=== PATIENT | female | born 1950 | race Caucasian/White ===

== ENCOUNTER 2019-06-01 12:13 | Outpatient (CLI) | payer MEDICARE, BC, SELFPAY ==
--- NOTE | ~2019-06-01 | MM_ITS ---
EXAMINATION: MM diagnostic zafar RT w etelvina HISTORY: Right breast cancer TECHNIQUE: Additional 3-D tomosynthesis images of the right breast were performed and synthetic 2-D i mages were generated. CAD analysis was submitted and interpreted. COMPARISON: Comparison to multiple prior studies sequentially, with oldest reviewed study dated 10/2017. FINDINGS: Breast composed of scattered areas of fibroglandular density. Stable appearance to postsurg ical change upper outer quadrant of the right breast. No new masses, calcifications or architectural distortion. IMPRESSION: 1. Stable right mammogram without evidence for malignancy. 2. Routine yearly screening mammogram and regular clinical breast examination are recommended. BI-RADS Category 2: Benign finding(s). Reviewed, dictated and finalized at location A. SURE CONTROLLER IMPRESSION: 1. Stable right mammogram without evidence for malignancy. 2. Routine yearly screening mammogram and regular clinical breast examination a re recommended. BI-RADS Category 2: Benign finding(s).
== END 2019-06-01 12:14 | disposition home or self-care (01) ==
PROVIDERS: PCP Pediatrics; Visit Provider Internal Medicine Hematology & Oncology
DX: D05.11 Intraductal carcinoma in situ of right breast (principal)
CPT/HCPCS: 77061; 77065; G0279

== ENCOUNTER 2019-06-01 12:49 | Outpatient (CLI) | payer MEDICARE, BC, SELFPAY ==
[2019-06-01 13:03] LABS: Basophils Percent Auto 0.5 % (0.2-1.2); Eosinophils Absolute Auto 0.1 K/mm3 (0-0.3); Eosinophils Percent Auto 1.7 % (0-4.4); Hematocrit 35.5 % (37.0-47.0); Hemoglobin 11.7 g/dL (12.0-15.0); Immature Granulocyte Absolute 0.01 K/mm3 (0.00-0.031); Immature Granulocyte Percent A 0.2 % (0-0.5); Lymphocytes Absolute Auto 1.31 K/mm3 (0.9-3.2); Lymphocytes Percent Auto 21.9 % (18.3-44.2); Mean Corpuscular Hemoglobin 30.1 pg (26-34); Mean Corpuscular Volume 91.3 fl (80-100); Mean Platelet Volume 10.2 fl (7.4-10.4); Monocytes Absolute Auto 0.4 K/mm3 (0.1-0.6); Monocytes Percent Auto 7.2 % (2.6-8.5); Neutrophils Absolute Auto 4.1 K/mm3 (1.3-6.7); Neutrophils Percent Auto 68.5 % (45.5-73.1); Platelet Count Result 165 k/mm3 (150-375); Red Blood Count 3.89 M/mm3 (4.2-5.4); Red Cell Distribution Width 12.9 % (11.5-14.5)
[2019-06-01 13:34] LABS: Blood Urea Nitrogen 18 mg/dL (7-17); Calcium 8.8 mg/dL (8.4-10.2); Carbon Dioxide 28 mmol/L (22-30); Chloride 101 mmol/L (98-107); Estimated Glomerular Filt Rate 55; Glucose 103 mg/dL (65-105); Potassium 4.1 mmol/L (3.4-5.0); Sodium 140 mmol/L (137-145)
== END 2019-06-01 12:50 | disposition home or self-care (01) ==
LOC: ANHLAB 12:53
PROVIDERS: PCP Pediatrics; Visit Provider Internal Medicine Hematology & Oncology
DX: D05.11 Intraductal carcinoma in situ of right breast (principal)
CPT/HCPCS: 36415; 77061; 77065; 80048; 85025; G0279

== ENCOUNTER 2019-09-17 08:54 | Outpatient (CLI) | payer MEDICARE, BC, SELFPAY ==
--- NOTE | ~2019-09-17 | MM_ITS ---
EXAMINATION: MM screening zafar BI w etelvina HISTORY: Screening mammogram, history of right breast cancer TECHNIQUE: Craniocaudal and mediolateral oblique 3-D tomosynthesis images were obtained and synthetic 2-D images were generated. CAD analysis was submitted and interpreted. COMPARISON: 06/01/2019, 09/14/2018, 03/10/2018 BREAST PARENCHYMAL COMPOSITION: The breasts are almost entirely fatty. FINDINGS: Stable lumpectomy changes are noted in the upper outer quadrant of the right breast. There is no evidence of suspicious mass, calcification, or architectural distortion to suggest malignancy i n either breast. There has been no suspicious interval change. IMPRESSION: 1. No mammographic evidence of malignancy. 2. Recommend routine screening mammography in one year. BI-RADS Category 2: Benign finding(s). Reviewed, dictated and finalized at location A.
== END 2019-09-17 08:55 | disposition home or self-care (01) ==
PROVIDERS: PCP Pediatrics; Visit Provider Internal Medicine Hematology & Oncology
DX: Z12.31 Encounter for screening mammogram for malignant neoplasm of breast (principal)
CPT/HCPCS: 77063; 77067

== ENCOUNTER 2019-12-20 10:03 | Outpatient (CLI) | payer MEDICARE, BC, SELFPAY ==
[2019-12-20 10:33] LABS: Basophils Percent Auto 0.5 % (0.2-1.2); Eosinophils Absolute Auto 0.2 K/mm3 (0-0.3); Eosinophils Percent Auto 3.1 % (0-4.4); Hemoglobin 12.1 g/dL (12.0-15.0); Immature Granulocyte Absolute 0.02 K/mm3 (0.00-0.031); Immature Granulocyte Percent A 0.3 % (0-0.5); Lymphocytes Absolute Auto 1.32 K/mm3 (0.9-3.2); Lymphocytes Percent Auto 20.3 % (18.3-44.2); Mean Corpuscular HGB Conc 32.7 g/dl (32-36); Mean Corpuscular Hemoglobin 29.9 pg (26-34); Mean Corpuscular Volume 91.4 fl (80-100); Mean Platelet Volume 10.4 fl (7.4-10.4); Monocytes Absolute Auto 0.6 K/mm3 (0.1-0.6); Monocytes Percent Auto 9.6 % (2.6-8.5); Neutrophils Absolute Auto 4.3 K/mm3 (1.3-6.7); Neutrophils Percent Auto 66.2 % (45.5-73.1); Platelet Count Result 164 k/mm3 (150-375); Red Blood Count 4.05 M/mm3 (4.2-5.4); Red Cell Distribution Width 13.2 % (11.5-14.5); White Blood Count 6.5 K/mm3 (4.5-10.0)
[2019-12-20 10:37] LABS: Blood Urea Nitrogen 20 mg/dL (8-26); Carbon Dioxide 27 mmol/L (22-30); Chloride 105 mmol/L (98-109); Estimated Glomerular Filt Rate 55; Glucose 67 mg/dL (70-105); Potassium 3.9 mmol/L (3.5-4.9); Sodium 142 mmol/L (138-146)
[2019-12-20 15:06] LABS: Alanine Aminotransferase 28 U/L (4-35); Alkaline Phosphatase 53 U/L (38-126); Anion Gap 4 mmol/L (8-16); Aspartate Amino Transferase 35 U/L (14-36); Bilirubin,Total 0.3 mg/dL (0.2-1.3); Blood Urea Nitrogen 20 mg/dL (7-17); Calcium 9.1 mg/dL (8.4-10.2); Carbon Dioxide 28 mmol/L (22-30); Chloride 106 mmol/L (98-107); Estimated Glomerular Filt Rate > 60; Glucose 64 mg/dL (65-105); Potassium 4.3 mmol/L (3.4-5.0); Sodium 138 mmol/L (137-145)
== END 2019-12-20 10:04 | disposition home or self-care (01) ==
PROVIDERS: PCP Pediatrics; Visit Provider Internal Medicine Hematology & Oncology
DX: D05.11 Intraductal carcinoma in situ of right breast (principal)
CPT/HCPCS: 36415; 80048; 80053; 85025

== ENCOUNTER 2020-06-18 09:09 | Outpatient (CLI) | payer MEDICARE, BC, SELFPAY ==
[2020-06-18 09:21] LABS: Basophils Absolute Auto 0.1 K/mm3 (0.0-0.1); Basophils Percent Auto 0.7 % (0.2-1.2); Eosinophils Absolute Auto 0.4 K/mm3 (0-0.3); Eosinophils Percent Auto 5.2 % (0-4.4); Hematocrit 37.8 % (37.0-47.0); Hemoglobin 12.8 g/dL (12.0-15.0); Immature Granulocyte Absolute 0.02 K/mm3 (0.00-0.031); Immature Granulocyte Percent A 0.2 % (0-0.5); Lymphocytes Absolute Auto 2.36 K/mm3 (0.9-3.2); Lymphocytes Percent Auto 28.7 % (18.3-44.2); Mean Corpuscular HGB Conc 33.9 g/dl (32-36); Mean Corpuscular Volume 88.7 fl (80-100); Mean Platelet Volume 10.2 fl (7.4-10.4); Monocytes Absolute Auto 0.7 K/mm3 (0.1-0.6); Monocytes Percent Auto 8.9 % (2.6-8.5); Neutrophils Absolute Auto 4.6 K/mm3 (1.3-6.7); Neutrophils Percent Auto 56.3 % (45.5-73.1); Platelet Count Result 201 k/mm3 (150-375); Red Blood Count 4.26 M/mm3 (4.2-5.4); White Blood Count 8.2 K/mm3 (4.5-10.0)
[2020-06-18 09:25] LABS: Blood Urea Nitrogen 21 mg/dL (8-26); Carbon Dioxide 27 mmol/L (22-30); Chloride 101 mmol/L (98-109); Estimated Glomerular Filt Rate 55; Glucose 106 mg/dL (70-105); Potassium 3.8 mmol/L (3.5-4.9); Sodium 137 mmol/L (138-146)
[2020-06-18 18:38] LABS: Alanine Aminotransferase 48 U/L (4-35); Alkaline Phosphatase 57 U/L (38-126); Anion Gap 7 mmol/L (8-16); Aspartate Amino Transferase 45 U/L (14-36); Bilirubin,Total 0.3 mg/dL (0.2-1.3); Blood Urea Nitrogen 22 mg/dL (7-17); Calcium 9.1 mg/dL (8.4-10.2); Carbon Dioxide 27 mmol/L (22-30); Chloride 103 mmol/L (98-107); Estimated Glomerular Filt Rate > 60; Glucose 106 mg/dL (65-105); Potassium 4.2 mmol/L (3.4-5.0); Sodium 137 mmol/L (137-145)
== END 2020-06-18 09:10 | disposition home or self-care (01) ==
LOC: ANHLAB 09:11
PROVIDERS: PCP Pediatrics; Visit Provider Internal Medicine Hematology & Oncology
DX: D05.11 Intraductal carcinoma in situ of right breast (principal)
CPT/HCPCS: 36415; 80048; 80053; 85025

== ENCOUNTER 2020-09-19 08:56 | Outpatient (CLI) | payer MEDICARE, BC, SELFPAY ==
--- NOTE | ~2020-09-19 | MM_ITS ---
EXAMINATION: MM screening zafar BI w etelvina HISTORY: Screening mammogram, history of right breast cancer TECHNIQUE: Craniocaudal and mediolateral oblique 3-D tomosynthesis images were obtained and synthetic 2-D images were generated. CAD analysis was submitted and interpreted. COMPARISON: 09/17/2019, 06/01/2019, 09/14/2018, 03/10/2018 BREAST PARENCHYMAL COMPOSITION: The breasts are almost entirely fatty. FINDINGS: There are stable lumpectomy changes right breast. There is no evidence of suspicious mass, calcification, or architectural distortion to suggest malignancy in either breast. There has been no suspicious interval change. IMPRESSION: 1. No mammographic evidence of malignancy. 2. Recommend routine screening mammography in one year. BI-RADS Category 2: Benign finding(s). Reviewed, dictated and finalized at location A.
== END 2020-09-19 08:57 | disposition home or self-care (01) ==
LOC: ANHIMG 08:58
PROVIDERS: PCP Pediatrics; Visit Provider Internal Medicine Hematology & Oncology
DX: Z12.31 Encounter for screening mammogram for malignant neoplasm of breast (principal)
CPT/HCPCS: 77063; 77067

== ENCOUNTER 2020-12-19 10:12 | Outpatient (CLI) | payer MEDICARE, BC, SELFPAY ==
[2020-12-19 10:28] LABS: Basophils Percent Auto 0.4 % (0.2-1.2); Eosinophils Absolute Auto 0.2 K/mm3 (0-0.3); Eosinophils Percent Auto 2.5 % (0-4.4); Hematocrit 37.7 % (37.0-47.0); Hemoglobin 12.6 g/dL (12.0-15.0); Immature Granulocyte Absolute 0.02 K/mm3 (0.00-0.031); Immature Granulocyte Percent A 0.3 % (0-0.5); Lymphocytes Absolute Auto 1.69 K/mm3 (0.9-3.2); Lymphocytes Percent Auto 24.8 % (18.3-44.2); Mean Corpuscular HGB Conc 33.4 g/dl (32-36); Mean Corpuscular Hemoglobin 29.9 pg (26-34); Mean Corpuscular Volume 89.3 fl (80-100); Mean Platelet Volume 10.4 fl (7.4-10.4); Monocytes Absolute Auto 0.6 K/mm3 (0.1-0.6); Monocytes Percent Auto 8.7 % (2.6-8.5); Neutrophils Absolute Auto 4.3 K/mm3 (1.3-6.7); Neutrophils Percent Auto 63.3 % (45.5-73.1); Platelet Count Result 195 k/mm3 (150-375); Red Blood Count 4.22 M/mm3 (4.2-5.4); Red Cell Distribution Width 13.2 % (11.5-14.5); White Blood Count 6.8 K/mm3 (4.5-10.0)
[2020-12-19 12:40] LABS: Alanine Aminotransferase 31 U/L (4-35); Albumin Level 4.1 g/dL (3.5-5.1); Alkaline Phosphatase 67 U/L (38-126); Anion Gap 8 mmol/L (8-16); Aspartate Amino Transferase 37 U/L (14-36); Bilirubin,Total 0.4 mg/dL (0.2-1.3); Blood Urea Nitrogen 22 mg/dL (7-17); Calcium 9.2 mg/dL (8.4-10.2); Carbon Dioxide 28 mmol/L (22-30); Chloride 102 mmol/L (98-107); Estimated Glomerular Filt Rate 55; Glucose 101 mg/dL (65-110); Potassium 3.9 mmol/L (3.4-5.0); Sodium 138 mmol/L (137-145)
== END 2020-12-19 10:13 | disposition home or self-care (01) ==
LOC: ANHLAB 10:16
PROVIDERS: PCP Pediatrics; Visit Provider Internal Medicine Hematology & Oncology
DX: D05.11 Intraductal carcinoma in situ of right breast (principal)
CPT/HCPCS: 36415; 80053; 85025

== ENCOUNTER 2021-06-16 12:34 | Outpatient (CLI) | payer MEDICARE, BC, SELFPAY ==
[2021-06-16 12:59] LABS: Basophils Percent Auto 0.6 % (0.2-1.2); Eosinophils Absolute Auto 0.1 K/mm3 (0-0.3); Eosinophils Percent Auto 1.6 % (0-4.4); Hematocrit 39.6 % (37.0-47.0); Hemoglobin 12.7 g/dL (12.0-15.0); Immature Granulocyte Absolute 0.02 K/mm3 (0.00-0.031); Immature Granulocyte Percent A 0.3 % (0-0.5); Lymphocytes Absolute Auto 2.02 K/mm3 (0.9-3.2); Lymphocytes Percent Auto 29.6 % (18.3-44.2); Mean Corpuscular HGB Conc 32.1 g/dl (32-36); Mean Corpuscular Hemoglobin 29.9 pg (26-34); Mean Corpuscular Volume 93.2 fl (80-100); Mean Platelet Volume 10.1 fl (7.4-10.4); Monocytes Absolute Auto 0.6 K/mm3 (0.1-0.6); Monocytes Percent Auto 8.1 % (2.6-8.5); Neutrophils Absolute Auto 4.1 K/mm3 (1.3-6.7); Neutrophils Percent Auto 59.8 % (45.5-73.1); Platelet Count Result 182 k/mm3 (150-375); Red Blood Count 4.25 M/mm3 (4.2-5.4); Red Cell Distribution Width 13.8 % (11.5-14.5); White Blood Count 6.8 K/mm3 (4.5-10.0)
[2021-06-16 13:02] LABS: Blood Urea Nitrogen 24 mg/dL (8-26); Carbon Dioxide 27 mmol/L (22-30); Chloride 99 mmol/L (98-109); Estimated Glomerular Filt Rate 54; Glucose 104 mg/dL (70-105); Potassium 3.5 mmol/L (3.5-4.9); Sodium 140 mmol/L (138-146)
[2021-06-16 13:27] LABS: Alanine Aminotransferase 29 U/L (4-35); Albumin Level 4.3 g/dL (3.5-5.1); Alkaline Phosphatase 58 U/L (38-126); Anion Gap 6 mmol/L (8-16); Aspartate Amino Transferase 46 U/L (14-36); Bilirubin,Total 0.3 mg/dL (0.2-1.3); Blood Urea Nitrogen 24 mg/dL (7-17); Calcium 9.1 mg/dL (8.4-10.2); Carbon Dioxide 30 mmol/L (22-30); Chloride 101 mmol/L (98-107); Estimated Glomerular Filt Rate 54; Glucose 104 mg/dL (65-110); Potassium 3.5 mmol/L (3.4-5.0); Sodium 137 mmol/L (137-145)
== END 2021-06-16 12:35 | disposition home or self-care (01) ==
LOC: ANHLAB 12:36
PROVIDERS: PCP Pediatrics; Visit Provider Internal Medicine Hematology & Oncology
DX: D05.11 Intraductal carcinoma in situ of right breast (principal)
CPT/HCPCS: 36415; 80053; 85025

== ENCOUNTER 2021-09-23 09:05 | Outpatient (CLI) | payer MEDICARE, BC, SELFPAY ==
--- NOTE | ~2021-09-23 | MM_ITS ---
EXAMINATION: MM screening zafar BI w etelvina HISTORY: Screening mammogram; history of right partial mastectomy for breast malignancy in 2018 TECHNIQUE: Craniocaudal and mediolateral oblique 3-D tomosynthesis images were obtained and synthetic 2-D images were generated. CAD analysis was submitted and interpreted. COMPARISON: 09/19/2020, 09/17/2019 bilateral screening mammogram examinations 06/01/2019 diagnostic right mammogram 09/14/2018 bilateral screening mammogram BREAST PARENCHYMAL COMPOSITION: There are scattered areas of fibroglandular density. FINDINGS: Stable postoperative change except for interval benign calcification of an area of fat necr osis in the posterior outer mid to upper right breast. There is no evidence of suspicious mass, calci fication, or architectural distortion to suggest malignancy in either breast. There has been no suspi cious interval change. IMPRESSION: 1. No mammographic evidence of malignancy. 2. Recommend routine screening mammography in one year. BI-RADS Category 2: Benign finding(s). Reviewed, dictated and finalized at location A.
== END 2021-09-23 09:06 | disposition home or self-care (01) ==
PROVIDERS: PCP Pediatrics; Visit Provider Internal Medicine Hematology & Oncology
DX: Z12.31 Encounter for screening mammogram for malignant neoplasm of breast (principal)
CPT/HCPCS: 77063; 77067

== ENCOUNTER 2022-03-24 09:37 | Outpatient (CLI) | payer MEDICARE, BC, SELFPAY ==
[2022-03-24 09:59] LABS: Basophils Percent Auto 0.3 % (0.2-1.2); Eosinophils Absolute Auto 0.1 K/mm3 (0-0.3); Eosinophils Percent Auto 2.2 % (0-4.4); Hematocrit 36.3 % (37.0-47.0); Hemoglobin 11.7 g/dL (12.0-15.0); Immature Granulocyte Absolute 0.01 K/mm3 (0.00-0.031); Immature Granulocyte Percent A 0.2 % (0-0.5); Lymphocytes Absolute Auto 1.57 K/mm3 (0.9-3.2); Lymphocytes Percent Auto 24.8 % (18.3-44.2); Mean Corpuscular HGB Conc 32.2 g/dl (32-36); Mean Corpuscular Hemoglobin 29.8 pg (26-34); Mean Corpuscular Volume 92.6 fl (80-100); Mean Platelet Volume 10.5 fl (7.4-10.4); Monocytes Absolute Auto 0.6 K/mm3 (0.1-0.6); Neutrophils Percent Auto 63.5 % (45.5-73.1); Platelet Count Result 228 k/mm3 (150-375); Red Blood Count 3.92 M/mm3 (4.2-5.4); Red Cell Distribution Width 14.1 % (11.5-14.5); White Blood Count 6.3 K/mm3 (4.5-10.0)
[2022-03-24 10:02] LABS: Blood Urea Nitrogen 21 mg/dL (8-26); Carbon Dioxide 27 mmol/L (22-30); Chloride 101 mmol/L (98-109); Estimated Glomerular Filt Rate 54; Glucose 108 mg/dL (70-105); Potassium 3.4 mmol/L (3.5-4.9); Sodium 140 mmol/L (138-146)
[2022-03-24 11:15] LABS: Alanine Aminotransferase 30 U/L (6-35); Albumin Level 4.2 g/dL (3.5-5.1); Alkaline Phosphatase 93 U/L (38-126); Anion Gap 7 mmol/L (8-16); Aspartate Amino Transferase 40 U/L (14-36); Bilirubin,Total 0.4 mg/dL (0.2-1.3); Blood Urea Nitrogen 21 mg/dL (7-17); Calcium 9.2 mg/dL (8.4-10.2); Carbon Dioxide 31 mmol/L (22-30); Chloride 102 mmol/L (98-107); Estimated Glomerular Filt Rate 54; Glucose 106 mg/dL (65-110); Potassium 3.4 mmol/L (3.4-5.0); Sodium 140 mmol/L (137-145)
== END 2022-03-24 09:38 | disposition home or self-care (01) ==
LOC: ANHLAB 09:39
PROVIDERS: PCP Pediatrics; Visit Provider Internal Medicine Hematology & Oncology
DX: D05.11 Intraductal carcinoma in situ of right breast (principal)
CPT/HCPCS: 36415; 80047; 80053; 85025

== ENCOUNTER 2022-09-27 09:26 | Outpatient (CLI) | payer MEDICARE, BC, SELFPAY ==
[2022-09-27 09:45] LABS: Basophils Percent Auto 0.5 % (0.2-1.2); Eosinophils Absolute Auto 0.2 K/mm3 (0-0.3); Eosinophils Percent Auto 2.3 % (0-4.4); Hematocrit 40.4 % (37.0-47.0); Hemoglobin 13.2 g/dL (12.0-15.0); Immature Granulocyte Absolute 0.01 K/mm3 (0.00-0.031); Immature Granulocyte Percent A 0.2 % (0-0.5); Lymphocytes Absolute Auto 1.94 K/mm3 (0.9-3.2); Lymphocytes Percent Auto 29.8 % (18.3-44.2); Mean Corpuscular HGB Conc 32.7 g/dl (32-36); Mean Corpuscular Hemoglobin 29.6 pg (26-34); Mean Corpuscular Volume 90.6 fl (80-100); Mean Platelet Volume 10.6 fl (7.4-10.4); Monocytes Absolute Auto 0.7 K/mm3 (0.1-0.6); Monocytes Percent Auto 10.5 % (2.6-8.5); Neutrophils Absolute Auto 3.7 K/mm3 (1.3-6.7); Neutrophils Percent Auto 56.7 % (45.5-73.1); Platelet Count Result 186 k/mm3 (150-375); Red Blood Count 4.46 M/mm3 (4.2-5.4); Red Cell Distribution Width 12.9 % (11.5-14.5); White Blood Count 6.5 K/mm3 (4.5-10.0)
[2022-09-27 12:02] LABS: Alanine Aminotransferase 34 U/L (6-35); Albumin Level 4.3 g/dL (3.5-5.1); Alkaline Phosphatase 68 U/L (38-126); Anion Gap 5 mmol/L (8-16); Aspartate Amino Transferase 41 U/L (14-36); Bilirubin,Total 0.4 mg/dL (0.2-1.3); Blood Urea Nitrogen 21 mg/dL (7-17); Calcium 9.2 mg/dL (8.4-10.2); Carbon Dioxide 31 mmol/L (22-30); Chloride 101 mmol/L (98-107); Estimated Glomerular Filt Rate 54; Glucose 100 mg/dL (65-110); Potassium 3.6 mmol/L (3.4-5.0); Sodium 137 mmol/L (137-145)
== END 2022-09-27 09:27 | disposition home or self-care (01) ==
LOC: ANHLAB 09:28
PROVIDERS: PCP Pediatrics; Visit Provider Internal Medicine Hematology & Oncology
DX: D05.11 Intraductal carcinoma in situ of right breast (principal)
CPT/HCPCS: 36415; 80053; 85025

== ENCOUNTER 2022-09-27 09:38 | Outpatient (CLI) | payer MEDICARE, BC, SELFPAY ==
--- NOTE | ~2022-09-27 | MM_ITS ---
EXAMINATION: MM screening zafar BI w etelvina HISTORY: Screening mammogram TECHNIQUE: Craniocaudal and mediolateral oblique 3-D tomosynthesis images were obtained and synthetic 2-D images were generated. CAD analysis was submitted and interpreted. COMPARISON: 09/23/2021, 09/19/2020, 09/17/2019 bilateral screening mammogram examinations BREAST PARENCHYMAL COMPOSITION: There are scattered areas of fibroglandular density.. FINDINGS: Stable postsurgical changes from right partial mastectomy are again noted in the mid upper outer right breast. There is no evidence of suspicious mass, calcification, or architectural distorti on to suggest malignancy in either breast. There has been no suspicious interval change. IMPRESSION: 1. Status post right partial mastectomy for breast cancer. No mammographic evidence of malignancy. 2. Recommend routine screening mammography in one year. BI-RADS Category 2: Benign finding(s). Reviewed, dictated and finalized at location A. IMPRESSION: 1. Status post right partial mastectomy for breast cancer. No mammographic evid ence of malignancy. 2. Recommend routine screening mammography in one year. BI-RADS Category 2: Benign finding(s).
== END 2022-09-27 09:39 | disposition home or self-care (01) ==
LOC: ANHIMG 09:40
PROVIDERS: PCP Pediatrics; Visit Provider Internal Medicine Hematology & Oncology
DX: Z12.31 Encounter for screening mammogram for malignant neoplasm of breast (principal)
CPT/HCPCS: 36415; 77063; 77067; 80053; 85025

== ENCOUNTER 2023-04-08 09:24 | Outpatient (CLI) | payer MEDICARE, BC, SELFPAY ==
[2023-04-08 09:35] LABS: Basophils Absolute Auto 0.1 K/mm3 (0.0-0.1); Basophils Percent Auto 0.6 % (0.2-1.2); Eosinophils Absolute Auto 0.2 K/mm3 (0-0.3); Eosinophils Percent Auto 2.8 % (0-4.4); Hematocrit 40.4 % (37.0-47.0); Hemoglobin 13.1 g/dL (12.0-15.0); Immature Granulocyte Absolute 0.02 K/mm3 (0.00-0.031); Immature Granulocyte Percent A 0.3 % (0-0.5); Lymphocytes Absolute Auto 1.97 K/mm3 (0.9-3.2); Lymphocytes Percent Auto 24.8 % (18.3-44.2); Mean Corpuscular HGB Conc 32.4 g/dl (32-36); Mean Corpuscular Hemoglobin 29.6 pg (26-34); Mean Corpuscular Volume 91.2 fl (80-100); Mean Platelet Volume 9.9 fl (7.4-10.4); Monocytes Absolute Auto 0.9 K/mm3 (0.1-0.6); Monocytes Percent Auto 10.7 % (2.6-8.5); Neutrophils Absolute Auto 4.8 K/mm3 (1.3-6.7); Neutrophils Percent Auto 60.8 % (45.5-73.1); Platelet Count Result 209 k/mm3 (150-375); Red Blood Count 4.43 M/mm3 (4.2-5.4); White Blood Count 7.9 K/mm3 (4.5-10.0)
[2023-04-08 09:39] LABS: Blood Urea Nitrogen 25 mg/dL (8-26); Carbon Dioxide 27 mmol/L (22-30); Chloride 101 mmol/L (98-109); Estimated Glomerular Filt Rate 54; Glucose 104 mg/dL (70-105); Sodium 139 mmol/L (138-146)
[2023-04-08 10:30] LABS: Alanine Aminotransferase 44 U/L (6-35); Albumin Level 4.3 g/dL (3.5-5.1); Alkaline Phosphatase 84 U/L (38-126); Anion Gap 9 mmol/L (8-16); Aspartate Amino Transferase 54 U/L (14-36); Bilirubin,Total 0.7 mg/dL (0.2-1.3); Blood Urea Nitrogen 25 mg/dL (7-17); Calcium 9.2 mg/dL (8.4-10.2); Carbon Dioxide 27 mmol/L (22-30); Chloride 101 mmol/L (98-107); Estimated Glomerular Filt Rate > 60; Glucose 104 mg/dL (65-110); Potassium 4.1 mmol/L (3.4-5.0); Sodium 137 mmol/L (137-145)
== END 2023-04-08 09:25 | disposition home or self-care (01) ==
LOC: ANHLAB 09:26
PROVIDERS: PCP Pediatrics; Visit Provider Internal Medicine Hematology & Oncology
DX: D05.11 Intraductal carcinoma in situ of right breast (principal)
CPT/HCPCS: 36415; 80047; 80053; 85025

== ENCOUNTER 2023-09-30 08:41 | Outpatient (CLI) | payer MEDICARE, BC, SELFPAY ==
--- NOTE | ~2023-09-30 | MM_ITS ---
EXAMINATION: MM screening zafar BI w etelvina HISTORY: Screening mammogram, family history of breast cancer in her mother. TECHNIQUE: Craniocaudal and mediolateral oblique 3-D tomosynthesis images were obtained and synthetic 2-D images were generated. CAD analysis was submitted and interpreted. COMPARISON: 09/27/2022, 09/23/2021, 09/19/2020 BREAST PARENCHYMAL COMPOSITION:Not Dense. There are scattered areas of fibroglandular density. FINDINGS: Stable postoperative change and dystrophic calcification at the upper, outer right breast. No suspicious mass, calcification, or architectural distortion are identified in either breast to sug gest malignancy. There has been no suspicious interval change. IMPRESSION: No mammographic evidence of malignancy. Recommend routine screening mammography in one year. BI-RADS Category 2: Benign finding(s). Reviewed, dictated and finalized at [facility].
== END 2023-09-30 08:42 | disposition home or self-care (01) ==
LOC: ANHIMG 08:44
PROVIDERS: PCP Pediatrics; Visit Provider Internal Medicine Hematology & Oncology
DX: Z12.31 Encounter for screening mammogram for malignant neoplasm of breast (principal)
CPT/HCPCS: 77063; 77067

== ENCOUNTER 2024-06-25 11:00 | Outpatient (CLI) | payer MEDICARE, BC, SELFPAY ==
[2024-06-25 11:17] LABS: Basophils Percent Auto 0.6 % (0.2-1.2); Eosinophils Absolute Auto 0.1 K/mm3 (0-0.3); Eosinophils Percent Auto 1.6 % (0-4.4); Hematocrit 40.7 % (37.0-47.0); Hemoglobin 13.2 g/dL (12.0-15.0); Immature Granulocyte Absolute 0.01 K/mm3 (0.00-0.031); Immature Granulocyte Percent A 0.1 % (0-0.5); Lymphocytes Absolute Auto 2.06 K/mm3 (0.9-3.2); Lymphocytes Percent Auto 29.1 % (18.3-44.2); Mean Corpuscular HGB Conc 32.4 g/dl (32-36); Mean Corpuscular Hemoglobin 29.5 pg (26-34); Mean Corpuscular Volume 91.1 fl (80-100); Mean Platelet Volume 10.3 fl (7.4-10.4); Monocytes Absolute Auto 0.6 K/mm3 (0.1-0.6); Monocytes Percent Auto 8.3 % (2.6-8.5); Neutrophils Absolute Auto 4.3 K/mm3 (1.3-6.7); Neutrophils Percent Auto 60.3 % (45.5-73.1); Platelet Count Result 192 k/mm3 (150-375); Red Blood Count 4.47 M/mm3 (4.2-5.4); Red Cell Distribution Width 13.2 % (11.5-14.5); White Blood Count 7.1 K/mm3 (4.5-10.0)
[2024-06-25 11:48] LABS: Anion Gap 10 mmol/L (4-12); Blood Urea Nitrogen 18 mg/dL (7-17); Calcium 9.8 mg/dL (8.4-10.2); Carbon Dioxide 27 mmol/L (22-30); Chloride 104 mmol/L (98-107); Estimated Glomerular Filt Rate 59; Glucose 106 mg/dL (65-110); Potassium 4.5 mmol/L (3.4-5.0); Sodium 141 mmol/L (137-145)
--- OUTSIDE RECORDS SUMMARY | 2024-06-25 13:02 | XMS_ITS | Clinical Summary ---
Author Organization [facility] Address [address] [place] [address] Care Team Providers Care Rn Concurrent Review Name Role Phone Rick Mohan MD Primary Care Provider + [phone] David Greene MD Unavailable Unavailabl Ever Kennedy MD Unavailable [phone] Allergies Active Allergy Reactions Criticality Noted Date Comments Tape Unknown 01/23/2020 Nickel Hives 07/29/2017 Medications Calcium Carb-Cholecalci ferol (CALCIUM CARBONATE-VITAM IN D) 600-400 MG-UNIT tablet Take 2 tablets by mouth daily. Active Glucosamine-Cho ndroit-Vit C-Mn (GLUCOSAMINE 1500 COMPLEX OR) Take 1 capsule by mouth daily. Active tamoxifen 20 MG tablet Take 1 tablet by mouth daily. 12/12/2019 Active valACYclovir 1 g tablet Take 1 tablet (1,000 mg total) by mouth daily. Takes on Mon,wed,Fri in evening 08/06/2019 Active Multiple Vitamins-Minera ls (CENTRUM SILVER 50+WOMEN) Tab Take 1 tablet by mouth daily. Active Magnesium Gluconate 500 MG Tab Take 1 tablet by mouth daily. Active vitamin D3, cholecalciferol , 5000 UNITS capsule Take 2,000 Units by mouth daily. Active chlorthalidone 25 MG tablet Take 1 tablet (25 mg total) by mouth daily. 03/21/2020 Active atorvastatin (LIPITOR) 40 MG tablet 09/12/2022 Active Active Problems Problem Noted Date Diagnosed Date Personal history of colonic polyps 09/06/2022 Overview (09/06/2022): Added automatically from request for surgery [id number] PVC (premature ventricular contraction) 01/23/20 PAC (premature atrial contraction) 01/22/2022 PFO (patent foramen ovale) ([facility]) 07/22/2021 Essential (primary) hypertension 07/22/2021 Abnormal EKG 05/26/2020 Mixed hyperlipidemia 01/28/2020 Prehypertension 01/28/2020 Resolved Problems Problem Noted Date Diagnosed Date Resolved Date Preop cardiovascular exam 01/28/2020 Immunizations Name Administration Dates Next Due Influenza (Generic) 01/23/2013,01/13/2012 PFIZER COVID-19 (ORIGINAL FO RMULATION, PURPLE CAP) mRNA, LNP-S, PF, 30 MCG/0.3 ML DOSE 06/12/2020,05/22/2020 Pneumococcal (Prevnar 13) 09/06/2015 Shingrix 09/15/2019,04/26/2019 Zoster (Zostavax) 15609 Unt/0.65Ml 07/09/2015 Family History Medical History Relation Comments Lung Cancer Brother Cancer Father Diabetes Father Heart Disease Mother Hyperlipidemia Mother Hypertension Mother Stroke Mother Relation Status Comments Brother Father Mother Social History Tobacco Use Types Packs/Day Years Used Date Smoking Tobacco: Former Smokeless Tobacco: Never Alcohol Use Standard Drinks/Week Comments Yes 0 (1 standard drink = 0.6 oz pur e alcohol) socially Comments No Sex and Gender Information Value Date Recorded Sex Assigned at Not on file Legal Sex Female 6:15 PM CDT Gender Identity Not on file Sexual Orientation Not on file Last Filed Vital Signs Vital Sign Reading Time Taken Comments Blood Pressure 138/69 09/14/2022 11:36 AM CDT Pulse 65 09/14/2022 11:36 AM CDT Temperature 36.8 C (98.3 F) 09/14/2022 9:37 AM CDT Respiratory Rate 16 09/14/2022 11:36 AM CDT Oxygen Saturation 99% 09/14/2022 11:36 AM CDT Inhaled Oxygen Concentration - - Weight 66.7 kg (147 lb 0.8 oz) 09/14/2022 9:37 A M CDT Height 157.5 cm (5' 2 ) 09/14/2022 9:37 AM CDT Body Mass Index 26.9 09/14/2022 9:37 AM CDT Plan of Treatment Health Maintenance Due Date Last Done Comments PHQ-2 (Physician Native) 1962 Hepatitis C 1968 DTaP, Tdap and Td Vaccines ( 1 - Tdap) 1969 Annual Medicare Wellness Visit 2013 Pneumococcal Vaccine: 65+ Years (2 of 2 - PPSV23 or PCV20) 09/05/2016 09/06/2015 RSV Immunization or 60+ Years (1 - 1-dose 75+ series) 2023 COVID-19 Vaccine (3 - 2023-2 5 season) 2023 06/12/2020, 05/22/2020 Influenza Adult (#1) 2024 01/23/2013, 01/13/2012 PHQ-2 (Physician Native) 04/04/2024 Zoster Vaccines Completed 09/15/2019, 04/26/2019, 07/09/2015 Colorectal Cancer Screening Colonoscopy (10 Years) Discontinued 09/14/2022, 09/14/2022 Dexa Scan (General) Completed 01/28/2023 Meningococcal B Vaccine Aged Out No l onger eligible based on patient's age to complete this topic Meningococcal Vaccine Aged Out No omar james eligible based on patient's age to complete this topic RSV Immunizations Under 20 Months Aged Out No longer eligible based on patient's age to complete this topic Procedures Procedure Name Priority Date/Time Associated Diagnosis Comments BONE DENSITY/DEXA Routine 01/28/2023 9:5 0 AM CDT Asymptomatic menopausal state COLONOSCOPY Routine 09/14/2022 9:10 AM CDT from Last 3 Months or Most Recently Relevant to Health Maintenance Results * BONE DENSITY/DEXA (01/28/2023 9:50 AM CDT) Anatomical Region Laterality Modality Bone Other, Computed Tomography 02/01/2023 9:22 AM CDT Impressions 02/01/2023 9:24 AM CDT IMPRESSION: WHO Classification: osteopenia. 5.2% interval increase in bone mineral density of the left hip from 2019 comparison. Ordered By: MEGHNA YATES Interpreted By: Ronald Correa MD, 02/01/2023 9:22 AM Narrative 02/01/2023 9:24 AM CDT Examination: Bone Density Axial Exam Date/Time: 01/28/2023 9:38 AM Reason For Exam: Asymptomatic menopausal state Comparison: 07/26/2018 DEXA scan Findings: DEXA bone densitometry The bone mineral density (BMD) was determined by dual-energy x-ray absorptiometry, the results are as follows: AP Lumbar Spine L1 through L4 BMD Patient (GM/SQCM): 1.317 T-Score (Standard deviations from young adult peak bone density): 1.1 Left femoral neck: BMD Patient (GM/SQCM): 0.676 T-Score (Standard deviations from young adult peak bone density): -2.5 Total left femur: BMD Patient (GM/SQCM): 0.840 T-Score (Standard deviations from young adult peak bone density): -1.3 Procedure Note Ronald Correa MD - 02/01/2023 Examination: Bone Density Axial Exam Date/Time: 01/28/2023 9:38 AM Reason For Exam: Asymptomatic menopausal state Comparison: 07/26/2018 DEXA scan Findings: DEXA bone densitometry The bone mineral density (BMD) was determined bydual-energy x-ray absorptiometry, the results are as follows: AP Lumbar Spine L1 through L4 BMD Patient (GM/SQCM): 1.317 T-Score (Standard deviations from young adult peak bonedensity): 1.1 Left femoral neck: BMD Patient (GM/SQCM): 0.676 T-Score (Standard deviations from young adult peak bonedensity): -2.5 Total left femur: BMD Patient (GM/SQCM): 0.840 T-Score (Standard deviations from young adult peak bonedensity): -1.3 IMPRESSION: WHO Classification: osteopenia. 5.2% interval increase in bone mineraldensity of the left hip from 2019 comparison. Ordered By: MEGHNA YATES Interpreted By: Ronald Correa MD, 02/01/2023 9:22 AM Meghna Yates [facility]- DEXA Final R esult from Last 3 Months or Most Recently Relevant to Health Maintenance Insurance [facility]IC[facility] Advance Directives Documents on File Type Date Recorded Patient Lease Operator Expl anation Advance Directives and Living Will 11/18/2014 12:00 AM ADVANCED DIRECTIVES Advance Directives and Living Will 11/18/2014 12:00 AM ADVANCED DIRECTIVES Care Teams Rn Concurrent Review Relationship Specialty Start Date End Date Rick Mohan MD [address] [place], [place] [id number] PCP - General PEDIATRICS 01/23/20 David Greene MD [address] [place] [address] OBGYN 01/23/20 Ever Bernstein MD [address] [address] Physician INTERVENTIONAL CARDIOLOGY 01/23/20
--- OUTSIDE RECORDS SUMMARY | 2024-06-25 13:02 | XMS_ITS | Data Portability ---
Author Organization [place] [facility] Main Office- [place] Address [address] [place] [address] Care Team Providers Care Jewel Grinder Name Role Phone JL GONZALEZ Primary Care Provider [phone] Assessment No assessment recorded. Plan of Treatment Reminders Order Date Submit Date Provider Last Modified By Organization Details Last Modified Time Details Appointments None record ed. Lab None record ed. Referral None record ed. Procedures None record ed. Surgeries None record ed. Imaging None record ed. Medication Orders None record ed. Patient TargetsNo targets recorded. Patient Instructions Encounter Date Encounter Id Patient Instructions Last Modified By Organization Details Last Modified Time 12/09/2020 [id number] I discussed with Rosita that fortunately this fracture is not in a position where it needs surgical intervention. My recommendation is for her to wear the walking boot for support. She will need this on anytime she is up and ambulatory. She can weight bear as tolerated. If this causes her too much pain she can use the knee walker when needed. She can continue to ice and elevate to help with the swelling. She will use Tylenol for pain control. I will see her back in six weeks with repeat radiographs. [email or web address] Not available 12/12/2020 17:33:06 01/20/2021 779 I discussed with Rosita that she can now wean out of the boot, using pain as a guide. She can work on ROM exercises. If this swells with increased activities she can ice and elevate as needed. I will see her back on a PRN basis. [email or web address] Not available 01/20/2021 21:33:31 02/24/2021 909 I discussed with Rosita that at this point she can return to all activities as normal. If while she is extra active while on vacation the foot may swell some. She can just ice and elevate as needed. Her radiographs show good healing and union of this fracture. I am going to release her to a PRN basis. She is in agreement with this. Patient was seen by Bethanie Farfan NP, and the diagnoses, problems and treatment plan for the patient has been reviewed and approved by ne, Dr. Patricio Jimenez. Not available 02/24/2021 11:06:11 Reason for Referral None Reported. Results Created Date Observation Date Name Description Value Unit Range Abnormal Flag Note LastModifiedBy Organization Detail LastModifiedTime 01/15/20 XR, foot No observ ation record ed. [address], [place], [address], 01/14/2021 17:11:33 01/21/2001/20/2021 imagi ng inter preta tion No observ ation record ed. [place] [address], [place], [address], 01/21/2021 11:47:53 02/17/20 XR, foot No observ ation record ed. [address], [place], [address], 02/16/2021 14:31:43 02/25/20 21 02/24/2021 imagi ng inter preta tion No observ ation record ed. [place] [address], [place], [address], 02/25/2021 10:15:10 Result Notes None recorded. Problems Name Problem SNOMED Code Status Onset Date Resolution Date Notes Provider Name and Address Organization Details Recorded Time Closed fracture of base of fifth metatarsal bone 196297132 Completed 202002/16/2021 [place] [address], [place], [address], [place] [facility] 14:32:51 Closed fracture of base of fifth metatarsal bone 199571522 Completed 202002/16/2021 Nickie Aceves null, [place] [facility] 11:03:57 Closed fracture of base of fifth metatarsal bone 012594811 Completed 202002/16/2021 Nickie Ketan [place] [facility] 11:03:57 Closed fracture of base of fifth metatarsal bone 264980797 Active 2020 Nickie Ketan [place] [facility] 11:03:57 Hypertensiv e disorder 20418378 Active 2020 Nickie Aceves [place] [facility] 09:17:37 Hypercholes terolemia 99441029 Active 2020 Nick[place]ves [place] [facility] 09:17:44 Malignant tumor of breast 771419653 Active 2020 Nickie Ketan [place] [facility] 09:17:54 Problem Notes None recorded. Procedures Surgical History Date Name Laterality Status Provider Name and Address Organization Details Recorded Time lumpectomy of right breast completed Nickie Ketan [place] [facility] 12/05/2020 09:22:00 open reduction of fracture with internal fixation completed Nickie Aceves [place] [facility] 12/05/2020 09:23:09 fixed suspension procedure of urinary bladder neck completed Nickie Ketan [place] [facility] 12/05/2020 09:23:37 Imaging Results Imaging Date Name Status LastModified by Organization Details LastModified Time 01/14/2021 XR, foot completed [address], [place], [address], 01/14/2021 17:11:33 01/20/2021 imaging interpretation completed [address], [place], [address], 01/21/2021 11:47:53 02/16/2021 XR, foot completed [address], [place], [address], 02/16/2021 14:31:43 02/24/2021 imaging interpretation completed [address], [place], [address], 02/25/2021 10:15:10 Procedure Notes None recorded. Medical Equipment None Reported. Allergies Allergen ID Allergen Name Allergen Category Reaction Reaction Severity Criticality Documentation Date Start Date Code Code System Note Provider Name and Address Organization Details Recorded Time 302 nickel environme nt rash severe Not available 12/05/2020 97956 29 RxNorm Nickie haney, [place] [facility] 09:17:06 Medications Name Sig Start Date Stop Date Status Note LastModified by Organization Details LastModified Time atorvastati n 20 mg tablet TAKE 1 TABLET BY MOUTH EVERY NIGHT AT BEDTIME active Not Available Not Available No t Available atorvastati n 10 mg tablet TK 1 T PO QD 12/09 completed Not Available Not Available Not Available fluconazole 150 mg tablet TAKE 1 TABLET BY MOUTH ON DAY 3 OF ANTIBIOTI C active Not Available Not Available No t Available valacyclovi r 1 gram tablet TAKE 1 TABLET BY MOUTH DAILY active Not Available Not Available No t Available chlorthalid one 25 mg tablet TAKE 1 TABLET BY MOUTH EVERY DAY active Not Available Not Available No t Available tramadol 50 mg tablet TAKE 1 TABLET BY MOUTH EVERY 6 HOURS NEEDED FOR PAIN 12/09 completed Not Available Not Available Not Available cephalexin 500 mg capsule TAKE 1 CAPSULE BY MOUTH THREE TIMES A DAY UNTIL FINISHED 01/20 completed Not Available Not Available Not Available tamoxifen 20 mg tablet TAKE 1 TABLET BY MOUTH DAILY active Not Available Not Available No t Available ipratropium bromide 21 mcg (0.03 %) nasal spray USE 2 SPRAYS IN EACH NOSTRIL 2 TIMES PER DAY active Not Available Not Available No t Available Vitals Date Recorded Body height Body mass index (BMI) Body weight Body temperature Heart rate Systolic blood pressure Diastolic blood pressure Provider Name and Address Organization Details Last Updated DateTime 1 160.02 cm 27.5 kg/m2 60750.8 2 g 97.5 [degF] 70 /min 143 mm[Hg] 59 mm[Hg] Cristy Inman [place] [facility] 15:04:58 Date Recorded Body height Heart rate Systolic blood pressure Diastolic blood pressure Provider Name and Address Organization Details Last Updated DateTime 01/20/2021 160.02 cm 66 /min 136 mm[Hg] 68 mm[Hg] Cristy Ambrizoggins [place] [facility] 01/20/2021 10:58:51 Date Recorded Body height Heart rate Systolic blood pressure Diastolic blood pressure Provider Name and Address Organization Details Last Updated DateTime 02/24/2021 160.02 cm 75 /min 120 mm[Hg] 66 mm[Hg] Cristy Storm [place] [facility] 02/24/2021 10:12:45 Social History Question Answer Notes LastModified by Organizat ion Details LastModified Time Tobacco Smoking Status Former Smoker Nickie haney [place] [facility] 12/05/2020 09:19:45 Do You Have An Advance Directive? Yes Information not available 12/05/2020 What Is Your Level Of Alcohol Consumption? Occasional Information not available 12/05/2020 Are You Blind Or Do You Have Difficulty Seeing? No Information not available 12/05/2020 Is Blood Transfusion Acceptable In An Emergency? Yes Information not available 12/05/2020 What Is Your Level Of Caffeine Consumption? Moderate Information not available 12/05/2020 In The 14 Days Before Symptom Onset, Have You Had Close Contact With A Laboratory-confir med COVID-19 While That Case Was Ill? No Information not available 12/05/2020 In The 14 Days Before Symptom Onset, Have You Had Close Contact With A Person Who Is Under Investigation For COVID-19 While That Person Was Ill? No Information not available 12/05/2020 Have You Been To An Area Known To Be High Risk For COVID-19? No Information not available 12/05/2020 Are You Currently Employed? No Information not available 12/05/2020 Are You Deaf Or Do You Have Serious Difficulty Hearing? No Information not available 12/05/2020 What Type Of Diet Are You Following? REGULAR Information not available 12/05/2020 Have You Processed Blood Or Body Fluids From An Ebola Virus Disease Patient Without Appropriate PPE? No Information not available 12/05/2020 Do You Reside In Or Have You Traveled To An Area Where Ebola Virus Transmission Is Active? No Information not available 12/05/2020 What Is The Highest Grade Or Level Of School You Have Completed Or The Highest Degree You Have Received? [id number] Information not available 12/05/2020 Are There Any Guns Present In Your Home? No Information not available 12/05/2020 Which Of Your Hands Is Dominant? Right Information not available 12/05/2020 What Is Your Relationship Status? Information not available 12/05/2020 Do You Use Your Seat Belt Or Car Seat Routinely? Yes Information not available 12/05/2020 Are You Sexually Active? No Information not available 12/05/2020 Do You Have Smoke And Carbon Monoxide Detectors In Your Home? Yes Information not available 12/05/2020 Do You Feel Stressed (tense, Restless, Nervous, Or Anxious, Or Unable To Sleep At Night)? [id number] Information not available 12/05/2020 Do You Use Any Illicit Or Recreational Drugs? No Information not available 12/05/2020 Do You Use Sunscreen Routinely? No Information not available 12/05/2020 Do You Or Have You Ever Used Any Other Forms Of Tobacco Or Nicotine? No Information not available 12/05/2020 Sex: Female Functional Status Question Answer Note LastModified by Organizat ion Details LastModified Time Do you have difficulty walking or climbing stairs? No Information not available 12/05/2020 Are you able to walk? YESWOREST Information not available 12/05/2020 Do you have difficulty doing errands alone? No Information not available 12/05/2020 Are you able to care for yourself? Yes Information not available 12/05/2020 Do you have difficulty dressing or bathing? No Information not available 12/05/2020 What is your exercise level? Occasional Information not available 12/05/2020 Mental Status Question Answer Note LastModified by Organization D etails LastModified Time Do you have difficulty concentrating, remembering or making decisions? No Information no t available 12/05/2020 Family History Relationship Description Onset Age of this Age Resolved Age Notes LastModified by Organization Details LastModified Time Father No current problems or disability Not available 12/05 09:18:01 Mother No current problems or disability Not available 12/05 09:18:01 Medical History Condition Response Coronary Artery Disease N Heart Problems N Gout N Anxiety/Depression N Blood Transfusion N Hernia N Migraines N Thyroid Problems N COPD N Pacemaker N Anemia N Ulcers N Heart Attack (MD) N Diabetes N Bleeding Disorder N Orthotics N Arthritis N Seizures/Epilepsy N Blood Clot N Tuberculosis N AIDS/HIV N Cancer Y Stroke N Asthma N Peripheral Vascular Disease N High Cholesterol Y Hepatitis N Liver Disease N Rheumatoid Arthritis N Pulmonary Embolism N Hypertension Y Osteoporosis N Kidney Disease N Gynecological HistoryNo gynecological history recorded. Obstetrics History GPAL:G 0 P 0 0 0 0 Past Encounters Encounter ID Performer Location Encounter Start Date Encounter Closed Date Diagnosis/Indication Diagnosis SNOMED-CT Code Diagnosis ICD10 Code Diagnosis Note [id number] Patricio Jimenez [facility] [address] [place] [address] 12/09/2020 14:51:52 12/09/2020 15:53:50 Closed fracture of base of fifth metatarsal bone 924127116 S92.355A [id number] Patricio Jimenez DO [facility] [address] [place] [address] 01/20/2021 10:10:58 01/20/2021 11:35:24 Closed fracture of base of fifth metatarsal bone 214111838 S92.355A [id number] Patricio Jimenez DO [facility] [address] [place] [address] 02/24/2021 09:55:37 02/24/2021 11:06:59 Closed fracture of base of fifth metatarsal bone 776228382 S92.352D Health Concerns Section Related Observation LastModified by Organization Detai ls LastModified Time None Recorded Concern Status LastModified by Organization Details LastModified Time None Recorded Advance Directives Directive Y: Payers Encounter Date Sequence Insurance Name Policy Number Policy Raymundo Covered Member ID Raymundo Member ID Guarantor Name 12/09/2020 1 [place] Rosita Welch [id number] Rosita Welch 01/20/2021 1 [place] Welch [id number] Rosita Welch 01/20/2021 2 [place] [id number] Rosita Welch [id number] Rosita Welch 02/24/2021 1 [place] Welch [id number] Rosita Welch 02/24/2021 2 [place] [id number] Rosita Welch [id number] Rosita Welch Notes Date Note Type Note Provider Name and Address Organization Details Recorded Time 12/09/2020 text/html FootReported bypatient.Location: left; lateral Quality:aching Severity:mild Timing:abrupt Duration:date of onset: (12/04/2020); intermittent episodes lasting: Context:fall Aggravating Factors:walking; weightbearing Alleviating Factors:ice; rest; elevation Associated Symptoms:no numbness; no tingling; no redness;swelling Previous Surgery:none Prior Imaging:x ray Previous Injections:none Previous PT:none Working:no Work Related:no Rosita is here in follow up from the [place] [facility] on 12/04/2020. She states that she had just gotten a massage and was wearing a pair of croc sandles and her foot still had some oil on the bottom from the massage. She went to step off of a curb and the foot slipped out of the sandle causing her to hit her foot and skin her knees. She was placed into a posterior splint at the ER. She does have a boot already as well as a knee walker. She states she is not really having a lot of pain. The ROS is located in the chart and discussed with the patient. Patricio Jimenez, [address] [place], [address], [place] [facility] 12/14/2020 16:46:57 01/20/2021 text/html Rosita is seen in fracture care today for a follow up of her left fifth metatarsal fracture from 12/09/2020. She has recently returned from vacation where she did a lot of walking and wore her walking boot the entire time. She states she has not had any problems or any pain with her foot since she saw us [place] [address], [place], [address], [facility] - [facility] 01/21/2021 11:38:42 02/24/2021 text/html FootReported bypatient.Location: left Severity:no pain Previous Surgery:none Prior Imaging:x ray Rosita returns today in fracture care following her left foot base of the fifth metatarsal fracture on 12/09/2020. At her last visit she did have bridging callus but it was not yet 100% healed. She is a very active person and before going on vacation out of the country in a few weeks she wanted to make sure that the [place] [address], [place], [address], [facility] - [facility] 02/25/2021 10:08:15 OBGyn Episode No OBEpisode recorded.
--- OUTSIDE RECORDS SUMMARY | 2024-06-25 13:02 | XMS_ITS | Encounter Summary ---
Author Organization [facility] Address [address] [place] [address] Care Team Providers Care Unstacker Name Role Phone Rick Mohan MD Primary Care Provider + [phone] David Greene MD Unavailable [facility] Ever Bernstein MD Unavailable [phone] Encounter Details Date Type Department Care Team (Late st Contact Info) Description 01/23/2020 [facility] [address] [place] [address] Abstract, Doc [facility] Social History Tobacco Use Types Packs/Day Years Used Date Smoking Tobacco: Former Smokeless Tobacco: Never Alcohol Use Standard Drinks/Week Comments Yes 0 (1 standard drink = 0.6 oz pur e alcohol) socially Comments Unknown Sex and Gender Information Value Date Recorded Sex Assigned at Not on file Legal Sex Female 6:15 PM CDT Gender Identity Not on file Sexual Orientation Not on file documented as of this encounter Plan of Treatment Not on file documented as of this encounter Visit Diagnoses Not on filedocumented in this encounter Additional Health Concerns Infection Onset Date Last Indicated Resolved Time COVID-19 Rule Out 07/13/2020 07/13/2020 02/23/2021 6:13 PM COMPOSITE LAMINATOR COVID-19 Rule Out 07/18/2020 07/18/2020 02/23/2021 6:16 PM COMPOSITE LAMINATOR COVID-19 Rule Out 07/21/2020 07/21/2020 07/21/2020 12:31 PM CDT COVID-19 Rule Out 07/21/2020 07/18/2020 07/21/2020 12:33 PM CDT COVID-19 Rule Out 10/25/2020 10/25/2020 10/25/2020 8:42 AM CDT COVID-19 Rule Out 10/25/2020 10/25/2020 10/26/2020 8:01 PM CDT COVID-19 Rule Out 04/17/2021 04/17/2021 04/18/2021 3:56 AM COMPOSITE LAMINATOR documented as of this encounter Care Teams Unstacker Relationship Specialty Start Date End Date Rick Mohan MD [address] [place] [address] PCP - General PEDIATRICS 01/23/20 David Greene MD [address] [place] [address] OBGYN 01/23/20 Ever Bernstein MD [address] [facility] [address] [address] Physician INTERVENTIONAL CARDIOLOGY 01/23/20 documented as of this encounter
--- OUTSIDE RECORDS SUMMARY | 2024-06-25 13:02 | XMS_ITS | Clinical Summary ---
Author Organization [facility] Address [address] [place] [address] Phone Care Team Providers Care Drain Tile Press Operator Name Role Phone Brain Mohan MD Primary Care Provider Allergies Active Allergy Reactions Criticality Noted Date Comments Adhesive Tape-Silicones Itching,Unknown Low 018 Nickel Hives High 07/29/2017 Medications valACYclovir (VALTREX) 1 gram tablet TK 1 T PO DAILY 3 07/07/2017 Active glucosamine-cho ndroitin (ARTHX DS) 500-400 mg Capsule Take 1 Capsule by mouth 2 times daily 1/2 DOSE TWICE A DAY. Active docusate sodium (COLACE) 100 mg capsule Take 100 mg by mouth daily at bedtime . Active cholecalciferol , vitamin D3, 5,000 unit Take 1,000 Units by mouth 2 times daily as needed . Active calcium as carbonate (CALTRATE) 1,500 mg (600 mg elemental) Tablet Take 600 mg by mouth 2 times daily. Active MYRBETRIQ 25 mg Extended Release 24 hour tablet TK 1 T PO D QPM 2 10/09/2018 Active chlorthalidone (HYGROTON) 25 mg tablet Take 25 mg by mouth. 03/21/2020 Active magnesium gluconate (MAGONATE) 27 mg (500 mg) Tablet Take 1 Tablet by mouth. Active naproxen sodium (ALEVE) 220 mg Capsule Take by mouth. Active multivitamin with minerals (MULTIPLE VITAMINS 55 PLUS ORAL) Take 1 Tablet by mouth. Centrum Silver 50+ Active glucosamine-cho ndroitin (COSAFLEX) 500-400 mg Capsule Take by mouth. Active tamoxifen (NOLVADEX) 20 mg tabletIndicatio ns:Ductal carcinoma in situ (DCIS) of right breast TAKE 1 TABLET BY MOUTH DAILY 90 Tablet 3 10/08/2020 Active atorvastatin (LIPITOR) 20 mg tablet TAKE 1 TABLET BY MOUTH EVERY NIGHT AT BEDTIME 11/17/2020 Active Active Problems Problem Noted Date Diagnosed Date Osteopenia 12/21/2019 DCIS (ductal carcinoma in situ) of breast 2017 Encounters Date Type Department Care Team Description 06/25/2024 Orders Only [facility] - [place] [address] [place] [address] Roe Borden MD Ductal carcinoma in situ (DCIS) of right breast (Primary Dx) 05/01/2024 External Device Data STL ABSTRACTION Provider, Abstract from Last 3 Months Family History Medical History Relation Name Comments Lung Cancer Brother Pancreatic Cancer Father Breast Cancer Maternal Grandmother Breast Cancer Mother x 3 times Healthy Sister Relation Name Status Comments Brother Father Maternal Grandfather Maternal Grandmother Mother Alive Paternal Grandfather Paternal Grandmother Sister Alive Social History Tobacco Use Types Packs/Day Years Used Date Smoking Tobacco: Former Cigarettes Q uit: 07/29/2002 Smokeless Tobacco: Never Tobacco Cessation:Counseling Given: Not Answered Alcohol Use Standard Drinks/Week Comments Yes 0 (1 standard drink = 0.6 oz pur e alcohol) SOCIALLY Comments No Sex and Gender Information Value Date Recorded Sex Assigned at Not on file Legal Sex Female 1:04 PM CDT Gender Identity Not on file Sexual Orientation Not on file Last Filed Vital Signs Vital Sign Reading Time Taken Comments Blood Pressure 118/68 2023 9:43 AM SUPERVISOR CLOTH WINDING Pulse 77 2023 9:43 AM SUPERVISOR CLOTH WINDING Temperature 36 C (96.8 F) 2023 9:43 AM SUPERVISOR CLOTH WINDING Respiratory Rate 10 2023 9:43 AM SUPERVISOR CLOTH WINDING Oxygen Saturation 97% 2023 9:43 AM SUPERVISOR CLOTH WINDING Inhaled Oxygen Concentration - - Weight 66.7 kg (147 lb) 2023 9:43 AM SUPERVISOR CLOTH WINDING Height 160 cm (5' 3 ) 10/01/2022 9:26 AM CDT Body Mass Index 26.04 10/01/2022 9:26 AM CDT Plan of Treatment Upcoming Encounters Date Type Department Care Team (Late st Contact Info) Description 06/27/2024 2:00 PM CDT Office Visit [facility] - [place] [address] [facility] [address] [place] [address] Roe Borden MD [address] [facility] [address] [place] [address] Health Maintenance Due Date Last Done Comments DTAP/TDAP/TD VACCINES (1 - Tdap) 1969 Traditional Medicare (ACO) A nnual Wellness Visit 1969 PNEUMOCOCCAL VACCINE 50+ YEA RS (2 of 2 - PPSV23) 09/05/2016 09/06/2015 RSV VACCINE (60+ or ) (1 - 1-dose 75+ series) 2023 INFLUENZA VACCINE (#1) 2023 ZOSTER VACCINE Completed 09/15/2019, 04/05, 07/09/2015 COLORECTAL SCREENING Discontinued 09/14/2022, 09/14/2022, 09/14/2022, Additional history exists Colorectal Cancer Screening Discontinued OSTEOPOROSIS SCREENING Completed , 01/28/2023, 07/26/2018, Additional history exists FIT-DNA Q 3 years Discontinued FIT/FOBT Q 1 year Discontinued Flex Sig/CT Colonography Q 5 years Discontinued Medical Devices Implanted Type Area Manager Freelance Device Identifier Shelf Expiration Date Model / Serial / Lot Cataract Lens Left: Eye Insurance MEDICARE PART A AND B [employer] BLUE ACCESS/TRUE BLUE PPO Member Subscriber Plan / Payer (Ef fective 2020-Present) Name:Rosita Welch Relation to Subscriber:Self Name:Rosita Welch Payer ID:[id number] ([facility]) Type:PPO RX [employer] Commercial [facility] BLUE ACCESS/TRUE BLUE PPO Member Subscriber Plan / Payer (Ef fective 2020-Present) Name:Rosita Welch Relation to Subscriber:Self Name:Rosita Welch Payer ID:[id number] ([facility]) Type:PPO MEDICARE PART A AND B Advance Directives For more information, please contact: [phone] * Full Code (Latest Code Status on File) Date Activated Date Inactivated Comments 08/03/2017 9:40 AM 08/03/2017 3:15 PM * Full Code Date Activated Date Inactivated Comments 08/03/2017 9:26 AM 08/03/2017 9:40 AM * Full Code Date Activated Date Inactivated Comments 08/03/2017 6:32 AM 08/03/2017 9:26 AM Care Teams Drain Tile Press Operator Relationship Specialty Start Date End Date Brain Mohan MD [address] [place] [address] PCP - General Family Practice 07/20/17
--- OUTSIDE RECORDS SUMMARY | 2024-06-25 13:02 | XMS_ITS | Encounter Summary ---
Author Organization [facility] Address [address] [place] [address] Care Team Providers Care Planning Supervisor Name Role Phone Brain Mohan MD Primary Care Provider [phone] Reason for Visit * Reason Comments Medication Refill Encounter Details Date Type Department Care Team (Late Contact Info) Description 09/16/2018 Refill [facility] Oncology and H[facility]ology [facility] [address] [place] [address] Roe Borden MD [facility] [employer] [address] [place] [id number] Social History Tobacco Use Types Packs/Day Years Used Date Smoking Tobacco: Former Cigarettes Q uit: 07/29/2002 Smokeless Tobacco: Never Alcohol Use Standard Drinks/Week Comments Yes 0 (1 standard drink = 0.6 oz pur e alcohol) SOCIALLY Comments No Sex and Gender Information Value Date Recorded Sex Assigned at Not on file Legal Sex Female 1:04 PM CDT Gender Identity Not on file Sexual Orientation Not on file documented as of this encounter Plan of Treatment Upcoming Encounters Date Type Department Care Team (Late Contact Info) Description 06/27/2024 2:00 PM CDT Office Visit [facility] Oncology and Hematology [facility] [address] [place] [address] Roe Borden MD [address] [employer] [address] [place] [phone] documented as of this encounter Visit Diagnoses Not on filedocumented in this encounter Care Teams Planning Supervisor Relationship Specialty Start Date End Date Brain Mohan MD [address] [place] [phone] PCP - General Family Practice 07/20/17 documented as of this encounter
--- OUTSIDE RECORDS SUMMARY | 2024-06-25 13:02 | XMS_ITS | Encounter Summary ---
Author Organization [facility] Address Formerly [facility] [place] [address] Care Team Providers Care Manager Of Construction Name Role Phone Rick Mohan MD Primary Care Provider + [phone] Rick Mohan MD Primary Care Provider + [phone] David Greene MD Unavailable Ever Howard MD Unavailable [phone] Encounter Details Date Type Department Care Team (Late st Contact Info) Description 01/23/2011 Abstract [facility] Conversion Md, Generic Conversion, Social History Tobacco Use Types Packs/Day Years Used Date Smoking Tobacco: Never Assessed Comments Unknown Sex and Gender Information Value [...] Rule Out 07/13/2020 07/13/2020 02/23/2021 6:13 PM AIR SHOVEL OPERATOR COVID-19 Rule Out 07/18/2020 07/18/2020 02/23/2021 6:16 PM AIR SHOVEL OPERATOR COVID-19 Rule Out 07/21/2020 07/21/2020 07/21/2020 12:31 PM CDT COVID-19 Rule Out 07/21/2020 07/18/2020 07/21/2020 12:33 PM CDT COVID-19 Rule Out 10/25/2020 10/25/2020 10/25/2020 8:42 AM CDT COVID-19 Rule Out 10/25/2020 10/25/2020 10/26/2020 8:01 PM CDT COVID-19 Rule Out 04/17/2021 04/17/2021 04/18/2021 3:56 AM AIR SHOVEL OPERATOR documented as of this encounter Care Teams Manager Of Construction Relationship Specialty Start Date End Date Rick Mohan MD [address] [place] [address] PCP - General PEDIATRICS 01/05/20 01/22/20 Rick Mohan MD [address] [place] [id number] PCP - General PEDIATRICS 01/23/20 David Greene MD [address] [place] [id number] OBGYN 01/23/20 Ever Bernstein MD [address] [address] Physician INTERVENTIONAL CARDIOLOGY 01/23/20 documented as of this encounter
--- OUTSIDE RECORDS SUMMARY | 2024-06-25 13:02 | XMS_ITS | Encounter Summary ---
Author Organization [facility] [employer] [facility] Address [address] [place] [address] Care Team Providers Care Splitter Machine Name Role Phone Brain Mohan MD Primary Care Provider Encounter Details Date Type Department Care Team (Late st Contact Info) Description 06/25/2024 Orders Only [facility] Oncology and Hematology [facility] [address] [place] [address] Roe Borden MD [address] [employer] [address] [place] [phone] Ductal carcinoma in situ (DCIS) of right breast (Primary Dx) Social History Tobacco Use Types Packs/Day Years [...] Description 06/27/2024 2:00 PM CDT Office Visit [facility] Oncology and Hematology [place] [address] [place] [address] Roe Borden MD [address] [employer] [address] [place] [address] Scheduled Orders Name Type Priority Associated Diagnoses Orde r Schedule BASIC METABOLIC PANEL Lab Routine Ductal carcinoma in situ (DCIS) of right breast Expected: 06/25/2024, Expires: 06/25/2025 CBC WITH DIFFERENTIAL Lab Routine Ductal carcinoma in situ (DCIS) of right breast Expected: 06/25/2024, Expires: 06/25/2025 documented as of this encounter Visit Diagnoses Diagnosis Ductal carcinoma in situ (DCIS) of right breast- Primary documented in this encounter Care Teams Splitter Machine Relationship Specialty Start Date End Date Brain Mohan MD [address] [place] [phone] PCP - General Family Practice 07/20/17 documented as of this encounter
--- OUTSIDE RECORDS SUMMARY | 2024-06-25 13:02 | XMS_ITS | Encounter Summary ---
Author Organization [facility] Address [address] [place] [address] Care Team Providers Care Diamond Driller Helper Name Role Phone Brain Mohan MD Primary Care Provider Encounter Details Date Type Department Care Team (Late Contact Info) Description 08/24/2017 Chart Note [facility] Radiation Therapy [address] [place] [address] [place] [address] [place] [address] Social History Tobacco Use Types Packs/Day Years [...] Description 06/27/2024 2:00 PM CDT Office Visit [facility] Oncology and Hematology - [place] [address] [facility] [address] [place] [address] Roe Borden MD [address] [facility] [address] [place] [address] documented as of this encounter Visit Diagnoses Not on filedocumented in this encounter Care Teams Diamond Driller Helper Relationship Specialty Start Date End Date Brain Mohan MD [address] [place] [address] PCP - General Family Practice 07/20/17 documented as of this encounter
== END 2024-06-25 11:01 | disposition home or self-care (01) ==
LOC: ANHLAB 11:01
PROVIDERS: PCP Pediatrics; Visit Provider Internal Medicine Hematology & Oncology
DX: D05.11 Intraductal carcinoma in situ of right breast (principal)
CPT/HCPCS: 36415; 80048; 85025

== ENCOUNTER 2024-11-29 08:13 | Outpatient (CLI) | payer MEDICARE, BC, SELFPAY ==
--- NOTE | ~2024-11-29 | MM_ITS ---
EXAMINATION: screening [facility] BI w etelvina INDICATION: Asymptomatic, referred for screening mammogram. History of Right partial mastectomy . COMPARISON: 09/22/2023 through 09/17/2019 TECHNIQUE: Digital Breast Tomosynthesis CC, MLO views were obtained of Both breasts with computer-aided detection to assist in interpretation of the study. FINDINGS: There are scattered areas of fibroglandular density. Posttreatment changes in Right breast are stable. No new focal dominant mass, architectural distortion, or suspicious microcalcifications are identified. There are no features to suggest malignancy. IMPRESSION: Stable benign mammogram. No evidence of malignancy in the breast. Recommend annual screening mammography in 12 months. BI-RADS 2, BENIGN Reviewed, dictated and finalized at location B.
--- OUTSIDE RECORDS SUMMARY | 2024-11-29 08:20 | XMS_ITS | Patient Health Record ---
Author Organization [facility] Address [address] [place] [address] Care Team Providers Care Basting Puller Name Role Phone Dr. Rick Mohan Primary Care Provider [phone] Meghna Ruiz Unavailable [phone] Genesis Macario Unavailable [phone] Migration, Provider Unavailable Unavailable Allergies Allergen (clinical drug ingredient) Drug/Non Drug Allergy documented on EMR Reaction Allergy Type Onset Date Status nickel Nickel Unknown Allergy 08/03/2021 Active Tape Unknown Allergy 08/03/2021 Active Results Component Value Reference Range Flag Notes X ray : Shoulder, left Reviewed date:11/06/2024 02:22:46 PM Interpretation: Performing Lab: Notes/Report: X ray : Scapula, left Reviewed date:11/06/2024 02:22:39 PM Interpretation: Performing Lab: Notes/Report: MRI : Shoulder, left Reviewed date:11/21/2024 03:29:01 PM Interpretation: Performing Lab: Notes/Report: Charge Venipuncture Reviewed date:11/01/2024 08:59:55 AM Interpretation: Performing Lab: Notes/Report: Report Forwarded By: [address] [place] [id number] Hemoglobin A1c {Glycosylated } Reviewed date:11/01/2024 08:59:55 AM Interpretation: Performing Lab: Notes/Report: Test Performed by: Nikkie Andersen [address] [address] Nut Picker: Tal Hamm DO Report Forwarded By: [address] [place] [id number] Hemoglobin A1c 5.4 <=6.4 % Hemoglobin A1C < 5.7% = Normal 5.7-6.4% = Increased risk for future diabetes >=6.5% = Diabetes eAvg Glucose 108 <=117 mg/dL eAG Reference Range <117 mg/dL = Normal 117-137 mg/dL = Increased Risk For Future Diabetes >137 mg/dL = Diabetes Ferritin Reviewed date:11/01/2024 08:59:55 AM Interpretation: Performing Lab: Notes/Report: Test Performed by: [address] [address] Nut Picker: Tal Hamm DO Report Forwarded By: [address] [place] [id number] Ferritin Lvl 19.9 11.0-306.8 ng/mL Vitamin D 25 Hydroxy Reviewed date:11/01/2024 08:59:55 AM Interpretation: Performing Lab: Notes/Report: Test Performed by: [address] [address] Nut Picker: Tal Hamm DO Report Forwarded By: [address] [place] [id number] Vitamin D 25 OH 45 30-100 ng/mL Vitamin D25 Interpretation: Deficient: <= 20 ng/mL Insufficient: 21-29 ng/mL Sufficient: 30-100 ng/mL Upper Safety Limit: >100 ng/mL T4 Free Reviewed date:11/01/2024 08:59:55 AM Interpretation: Performing Lab: Notes/Report: Test Performed by: [address] [address] Nut Picker: Tal Hamm DO Report Forwarded By: [address] [place] [address] T4 Free 0.93 0.60-1.70 ng/dL CBC w Auto Diff Reviewed date:11/01/2024 08:59:55 AM Interpretation: Performing Lab: Notes/Report: Test Performed by: [address] [address] Nut Picker: Tal Hamm DO Report Forwarded By: [address] [place] [address] WBC 7.2 4.0-11.7 K/mcL RBC 4.55 3.80-5.41 x10*6/mcL Hgb 13.6 11.3-15.2 g/dL Hct 41.1 33.2-45.3 % MCV 90.2 79.5-98.1 fL MCH 29.9 27.0-34.2 pg MCHC 33.1 31.8-35.3 g/dL RDW 13.6 12.0-16.4 % Platelets 209 149-393 K/mcL MPV 9.9 7.0-11.0 fL Neutro Auto 65.2 45.3-79.0 % Lymph Auto 25.3 11.8-45.9 % [place] Auto 6.8 4.4-12.0 % Eosinophil Auto 2.0 0.0-6.3 % Basophil Auto 0.7 0.2-1.6 % Neutro Absolute 4.7 2.4-8.4 x10*3/mcL Lymph Absolute 1.8 0.8-3.7 x10*3/mcL [place] Absolute 0.5 0.3-1.1 x10*3/mcL Eos Absolute 0.1 0.0-0.5 x10*3/mcL Baso Absolute 0.1 0.0-0.1 x10*3/mcL Lipid Panel {Chol, Trig, HDL , LDL} Reviewed date:11/01/2024 08:59:55 AM Interpretation: Performing Lab: Notes/Report: Test Performed by: [address] [address] Nut Picker: Tal Hamm DO Report Forwarded By: [id number] [address] Cholesterol Total 200 <=199 mg/dL H Triglycerides 150 0-149 mg/dL H Triglyceride Reference Ranges: <150 mg/dL Normal 150 - 199 mg/dL Borderline High 200 - 499 mg/dL High >=500 mg/dL Very High LDL 94 <=100 mg/dL LDL Optimal: <100 Near or above optimal: 100-129 Borderline high: 130-159 High: 160-189 Very high: >=190 Coronary heart disease risk factors should be considered when determining LDL goals. Please refer to ATPIII guidelines for further information. If LDL is not calculated, please call the lab to add on the direct LDL methodology, if desired. HDL 76 23-92 mg/dL Non HDL Cholesterol 124 <=130 mg/dL Chol/HDL 3 0-5 Coronary Risk 38 Coronary Risk Factor - Male Dangerous Risk: <7 % High Risk: 7-15 % Average Risk: 15-25 % Below Average Risk: 25-37 % Coronary Risk Factor - Female Dangerous Risk: <12 % High Risk: 12-18 % Average Risk: 18-27 % Below Average Risk: 27-40 % Thyroid Stimulating Hormone Reviewed date:11/01/2024 08:59:55 AM Interpretation: Performing Lab: Notes/Report: Test Performed by: [address] [address] Nut Picker: Tal Hamm DO Report Forwarded By: [address] [place] [address] TSH 1.96 0.45-5.33 mcIU/mL Uric Acid Reviewed date:11/01/2024 08:59:55 AM Interpretation: Performing Lab: Notes/Report: Test Performed by: [address] [address] Nut Picker: Tal Hamm DO Report Forwarded By: [address] [place] [id number] Uric Acid 5.3 2.3-6.6 mg/dL Iron Level and TIBC Reviewed date:11/01/2024 08:59:55 AM Interpretation: Performing Lab: Notes/Report: Test Performed by: [address] [address] Nut Picker: Tal Hamm DO Report Forwarded By: [address] [place] [address] Iron Lvl 76 50-212 mcg/dL Transferrin 294 203-362 mg/dL TIBC 411 250-420 mcg/dL Iron Sat 19 20-55 % L AUDIT-C Reviewed date:01/20/2024 12:00:00 AM Interpretation: Performing Lab: Notes/Report: How many standard drinks containing alcohol do you have on a typical day? 1 or 2 drinks How often do you have 6 or more drinks on 1 occasion Never How often do you have a drink containing alcohol Two to Four times a month Total Score 2 Patient Health Questionnaire (PHQ9) Reviewed date:01/20/2024 12:00:00 AM Interpretation: Performing Lab: Notes/Report: Feeling bad about yourself or that you are a failure or have let yourself or your family down 0 Feeling down, depressed, or hopeless 0 Feeling tired or having little energy 0 If you checked off any problems, how difficult Not difficult at all have these problems made it for you to do your work, take care of things at home, or get along with other people? 0 Little interest or pleasure in doing things 0 Moving or speaking so slowly that other people could have noticed or the opposite being so figety or restless that you have been moving around a lot more than usual 0 Poor appetite or overeating 0 Thoughts that you would be better off , or of hurting yourself 0 Trouble concentrating on things, such as reading the newspaper or watching television 0 Trouble falling or staying asleep, or sleeping too much 2 Reason For Referral Reason Kristopher - Dr. Recinos. A bnormal MRI Diagnosis 1 Tear of left suprasp inatus tendon (M75.102) Referral Organization [facility] Referring Provider First Name Dr. Cabrera Referring Provider Last Name Kimberlee Referring Provider Speciality Pediatrics Referred Provider Specialty Orthopedic S urgery General Notes Cristy Emerson 0 11/16/2024 02:10:41 PM CDT >Referral faxed to [facility] [phone] Referral Priority Routine Medications Medication SIG (Take, Route, Frequency, Duration) Notes Start Date End Date Status Magnesium 500 mg Capsule 1 Oral every day; Duration: 0 *Pick strength-form from [employer] for eRX* 12/11/2020 Active Multi-Vitamin - Tablet 1 Oral every day; Duration: 0 12/11/2020 Active Calcium 600 oral; Duration: 0 *Pick strength-form from [employer] for eRX* 12/27/2022 Active ALPRAZolam 0.25 MG Tablet 1 Oral every evening; Duration: 0 ,PRN Reason:for anxiety 06/24/2023 Active Osteo Bi-Flex oral; Duration: 0 *Reorder from [employer] for eRx and Interaction Alerts* 12/11/2020 Active Ipratropium Central 0.03 % Solution 2 Nasal two times a day; Duration: 0 12/11/2020 Not-Taking ZyrTEC Allergy 10 MG Capsule Oral; Duration: 0 05/27/2021 Not-Taking Vitamin D3 25 MCG (1000 UT) Tablet 1 Oral two times a day; Duration: 0 12/11/2020 Not-Taking traMADol HCl 50 MG Tablet 1 tablet every 6 hours Orally As needed 11/09/2024 Active amLODIPine Besylate 5 MG Tablet 1 Oral every day; Duration: 90 days 10/24/2023 Active Atorvastatin Calcium 40 MG Tablet 1 tablet Oral Once a day; Duration: 90 days Active Allopurinol 100 MG Tablet 1 tablet Oral Once a day; Duration: 90 days Active Immunizations Vaccine Route Administration Date Status Comme nts [employer] Covid-19 Vaccine 1st dose Unknown 01/06/2023 Administered [facility] ,sourcename : Pharmacy Source VFC Code: : Pneumococcal conjugate PCV 13 Unknown 09/03/2015 Administered ,sourcename : Pharmacy Source VFC Code: : Pneumococcal polysaccharide PPV23 Unknown 09/02/2016 Administered ,sourcename : Pharmacy Source VFC Code: : Tdap Unknown 04/04/2015 Administered ,sourcename : Pharmacy Source VFC Code: : Zoster Unknown 04/04/2015 Administered ,sourcename : Pharmacy Source VFC Code: : Zoster Unknown 04/26/2019 Administered ,sourcename : Pharmacy Source VFC Code: : Zoster Unknown 09/17/2019 Administered ,sourcename : Pharmacy Source VFC Code: : Social History Social History Additional Details Category Social Info Options Details Migrated Social History Migrated Social History Tobacco history:Former smoker ,notes : Quit in 2001 35 pack year hx Problems Problem Type SNOMED Code ICD Code Onset Dates Problem Status W/U Status Risk Notes Problem Tobacco user (385589806) Nicotine dependence, cigarettes, 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) 024 Active confirmed Problem Disorder of bone (69642213) Disorder of bone, unspecified (M89.9) 017 Active confirmed Problem Dyspnea (063338219) Other forms of dyspnea (R06.09) 022 Active confirmed Problem Postmenopausal state (60562455) Asymptomatic menopausal state (Z78.0) 023 Active confirmed Problem Patent foramen ovale (448225168) Patent foramen ovale (Q21.12) 023 Active confirmed Problem Neoplasm of uncertain behavior of connective and other soft tissues (30024821) Neoplasms of unspecified nature of bone, soft tissue, and skin (239.2) 019 Problem resolved confirmed Problem Vulvovaginitis (disorder) (72423974) Unspecified vaginitis and vulvovaginitis (616.10) 017 Problem resolved confirmed Problem Female stress incontinence (58986463) Female stress incontinence (625.6) 019 Problem resolved confirmed Problem Malignant neoplasm of female breast (341363427) Malignant neoplasm of unspecified site of unspecified female breast (C50.919) Problem resolved confirmed Problem Pain of left hip joint (finding) (502788717611044) Pain in left hip (M25.552) 016 Problem resolved confirmed Problem Age-related osteoporosis (885859633) Age-related osteoporosis without current pathological fracture (M81.0) 016 Problem resolved confirmed Problem Osteochondropathy (61352414) Disorder of bone density and structure, unspecified (M85.9) Problem resolved confirmed Problem Urinary tract infectious disease (disorder) (46918453) Urinary tract infection, site not specified (N39.0) Problem resolved confirmed Problem Pre-procedure evaluation check (965366938) Encounter for other preprocedural examination (Z01.818) Problem resolved confirmed Problem Atopic dermatitis (56192676) Atopic dermatitis, unspecified (L20.9) 016 Problem resolved confirmed Problem Neoplasm of uncertain behavior of skin (31633192) Neoplasm of uncertain behavior of skin (D48.5) 019 Problem resolved confirmed Problem Displacement of lumbar intervertebral disc without myelopathy (86289268) Displacement of lumbar intervertebral disc without myelopathy (722.10) 017 Problem resolved confirmed Problem Arthralgia of the pelvic region and thigh (572381156) Pain in joint, pelvic region and thigh (719.45) 017 Problem resolved confirmed Problem Generalized atopic dermatitis (141438167) Other atopic dermatitis and related conditions (691.8) 016 Problem resolved confirmed Problem Hyperlipidemia (01370415) Other and unspecified hyperlipidemia (272.4) 016 Problem resolved confirmed Problem Mixed hyperlipidemia (508450111) Mixed hyperlipidemia (272.2) 016 Problem resolved confirmed Problem Hypothyroidism (45925239) Unspecified hypothyroidism (244.9) 017 Problem resolved confirmed Problem Malignant neoplasm of female breast (844358203) Malignant neoplasm of breast (female), unspecified site (174.9) 018 Problem resolved confirmed Problem Herpes simplex without complication (226395547) Herpes simplex without mention of complication (054.9) 016 Problem resolved confirmed Problem Genital herpes simplex (96139648) Unspecified genital herpes (054.10) 016 Problem resolved confirmed Problem Mixed hyperlipidemia (077595742) Mixed hyperlipidemia (E78.2) 016 Inactive confirmed Problem Impaired fasting glucose (621018050) Impaired fasting glucose (R73.01) 022 Active confirmed Problem Disorder of kidney and/or ureter (746665348) Disorder of kidney and ureter, unspecified (N28.9) 022 Active confirmed Problem Gout (45556554) Gout, unspecified (M10.9) 024 Active confirmed Problem Chronic obstructive pulmonary disease (47939229) Chronic obstructive pulmonary disease, unspecified (J44.9) 024 Active confirmed Problem Sleep disorder (07526991) Sleep disorder, unspecified (G47.9) 023 Active confirmed Problem Anemia (179649059) Anemia, unspecified (D64.9) 022 Active confirmed Problem 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, 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) 023 Active confirmed Problem Suspected disease caused by Severe acute respiratory coronavirus 2 (situation) (645235587) Encounter for screening for COVID-19 (Z11.52) 023 Problem resolved confirmed Problem Abnormal findings on diagnostic imaging of breast (321350371) Other abnormal and inconclusive findings on diagnostic imaging of breast (R92.8) 018 Problem resolved confirmed Problem SI - Stress incontinence (47440314) Stress incontinence (female) (male) (N39.3) 019 Problem resolved confirmed Problem Pain in left foot (383157194564159) Pain in left foot (M79.672) 018 Problem resolved confirmed Problem Pain in limb (66945903) Pain in left hand (M79.642) 017 Problem resolved confirmed Problem Pain in right hand (241952032258970) Pain in right hand (M79.641) 017 Problem resolved confirmed Problem Pain in left leg (456154772) Pain in left leg (M79.605) 017 Problem resolved confirmed Problem Pain in right leg (581586124) Pain in right leg (M79.604) 017 Problem resolved confirmed Problem Lumbar radiculopathy (793666780) Radiculopathy, lumbar region (M54.16) 017 Problem resolved confirmed Problem Gynecological examination normal (252224949748231) Encounter for gynecological examination (general) (routine) without abnormal findings (Z01.419) 016 Problem resolved confirmed Problem Blood chemistry abnormal (969194012) Other specified abnormal findings of blood chemistry (R79.89) 022 Problem resolved confirmed Problem Subacute and chronic vaginitis (N76.1) 018 Problem resolved confirmed Problem Acute vaginitis (37481962) Acute vaginitis (N76.0) 017 Problem resolved confirmed Problem Acute sinusitis (73515668) Acute sinusitis, unspecified (J01.90) 023 Problem resolved confirmed Problem Mammography abnormal (270691037) Unspecified abnormal mammogram (793.80) 018 Problem resolved confirmed Problem Essential hypertension (64128110) Essential (primary) hypertension (I10) 022 Active confirmed Problem Hypokalemia (92804791) Hypokalemia (E87.6) 022 Active confirmed Problem Hyperlipidemia (23359200) Hyperlipidemia, unspecified (E78.5) 023 Active confirmed Problem Vitamin D deficiency (21251341) Vitamin D deficiency, unspecified (E55.9) 022 Active confirmed Problem Pre-surgery evaluation (045237812) Other specified pre-operative examination (V72.83) 017 Problem resolved confirmed Problem Senile osteoporosis (26998006) Senile osteoporosis (733.01) 016 Problem resolved confirmed Problem Personal history of primary malignant neoplasm of breast (866543901) Personal history of malignant neoplasm of breast (Z85.3) 023 Active confirmed Problem Hypothyroidism (37570833) Hypothyroidism, unspecified (E03.9) 017 Problem resolved confirmed Problem Herpes simplex viral infection (35502437) Herpesviral infection, unspecified (B00.9) 016 Problem resolved confirmed Vital Signs Heart Rate 92 /min 11/05/2024 Temperature 97.7 degrees Fahrenheit 11/05/2024 Respiratory Rate 18 /min 06/05/2024 Blood pressure diastolic 74 mm Hg 11/05/2024 Oximetry 96 % 11/05/2024 Height-cm 154.94 cm 11/05/2024 Weight-kg 69.63 kg 11/05/2024 Height 61.00 in 11/05/2024 Blood pressure systolic 130 mm Hg 11/05/2024 Weight 153.5 lbs 11/05/2024 BMI 29 kg/m2 11/05/2024 Encounters Encounter Location Date Provider Diagnosis [address] [address] 01/20/2024 Meghna Ruiz Body mass index (BMI ) 28.0-28.9, adult Z68.28 ; Pain in right hip M25.551 ; Chronic obstructive pulmonary disease, unspecified J44.9 ; Hyperlipidemia, unspecified E78.5 ; Nicotine dependence, cigarettes, in remission F17.211 ; Essential (primary) hypertension I10 ; Encounter for general adult medical examination without abnormal findings Z00.00 ; Anogenital herpesviral infection, unspecified A60.9 ; Personal history of nicotine dependence Z87.891 and Personal history of malignant neoplasm of breast Z85.[address] [address] 02/07/2024 Dr. Rick Mohan Pneumonia, unspecified organism J18.[address] [address] 06/05/2024 Meghna Ruiz Hyperlipidemia, unspecified E78.5 ; Essential (primary) hypertension I10 ; Gout, unspecified M10.9 ; Spinal stenosis of lumbar region with neurogenic claudication M48.062 ; Chronic obstructive pulmonary disease, unspecified J44.9 and Anemia, unspecified D64.[address] [address] 11/05/2024 Genesis Macario Acute pain of left shoulder M25.512 ; Accidental fall, initial encounter W19.XXXA ; Shoulder impingement M25.819 and Pain of left scapula M89.8X1 [address] [address] 03/03/2024 Provider Migration [address] [address] 03/04/2024 Provider Migration [address] [address] [facility]22[facility] [address] [address] 05/29/2024 Meghna Ruiz Anemia, unspecified D64.9 ; Vitamin D deficiency, unspecified E55.9 ; Hyperlipidemia, unspecified E78.5 ; Essential (primary) hypertension I10 ; Gout, unspecified M10.9 and Impaired fasting glucose R73.[address] [address] 08/23/[address] [address] 08/24/2024 Dr. Rick Mohan [address] [address] 11/05/2024 Genesis Macario Acute pain of left shoulder M25.512 ; Shoulder impingement M25.819 and Accidental fall, initial encounter W19.XXXA [address] [address] 11/09/2024 Dr. Rick Mohan [address] [address] 11/13/2024 Dr. Rick Mohan [address] [address] 11/14/2024 Dr. Rick Mohan Tear of left supraspinatus tendon M75.102 Assessments Encounter Date Diagnosis (ICD Code) Assessment Notes Treatment Notes Treatment Clinical Notes Section Notes 05/29/2024 Anemia, unspecified (ICD-10 - D64.9) 05/29/2024 Vitamin D deficiency, unspecified (ICD-10 - E55.9) 11/05/2024 Shoulder impingement (ICD-10 - M25.819) 11/05/2024 Acute pain of left shoulder (ICD-10 - M25.512) - Possible biceps tendon injury, rotator cuff injury, or other soft tissue injury vs. strain. - Need to rule out dislocation/bone structure of the shoulder first. - Ordered X-ray of the Left Shoulder and Scapula.- If X-ray is negative, plan for MRI without contrast of Left Shoulder to evaluate for rotator cuff or biceps tendon pathology. - Advise rest, ice (prefer over heat, but can alternate), and alternating Tylenol and ibuprofen for pain control, with instructions to take with food. - Hold off on physical therapy until further imaging. - Offered dexamethasone injection, she declined due to ongoing pain management for back. - Declined stronger prescription mucles relaxant or pain medication for pain relief, has has bad side effects of these in the past. 11/05/2024 Accidental fall, initial encounter (ICD-10 - W19.XXXA) 06/05/2024 Hyperlipidemia, unspecified (ICD-10 - E78.5) Lipid panel is good. Tolerating atorvastatin. No changes. 11/05/2024 Acute pain of left shoulder (ICD-10 - M25.512) 02/07/2024 Pneumonia, unspecified organism (ICD-10 - J18.9) 01/20/2024 Anogenital herpesviral infection, unspecified (ICD-10 - A60.9) 01/20/2024 Hyperlipidemia, unspecified (ICD-10 - E78.5) 01/20/2024 Nicotine dependence, cigarettes, in remission (ICD-10 - F17.211) 01/20/2024 Essential (primary) hypertension (ICD-10 - I10) 01/20/2024 Chronic obstructive pulmonary disease, unspecified (ICD-10 - J44.9) 01/20/2024 Pain in right hip (ICD-10 - M25.551) 01/20/2024 Encounter for general adult medical examination without abnormal findings (ICD-10 - Z00.00) 01/20/2024 Personal history of malignant neoplasm of breast (ICD-10 - Z85.3) 01/20/2024 Personal history of nicotine dependence (ICD-10 - Z87.891) 01/20/2024 Body mass index (BMI) 28.0-28.9, adult (ICD-10 - Z68.28) 11/14/2024 Tear of left supraspinatus tendon (ICD-10 - M75.102) 11/05/2024 Accidental fall, initial encounter (ICD-10 - W19.XXXA) 06/05/2024 Essential (primary) hypertension (ICD-10 - I10) -BP is controlled with amlodipine 11/05/2024 Shoulder impingement (ICD-10 - M25.819) 05/29/2024 Hyperlipidemia, unspecified (ICD-10 - E78.5) 05/29/2024 Essential (primary) hypertension (ICD-10 - I10) 11/05/2024 Pain of left scapula (ICD-10 - M89.8X1) 06/05/2024 Gout, unspecified (ICD-10 - M10.9) -No gout flare since starting allopurinol 06/05/2024 Spinal stenosis of lumbar region with neurogenic claudication (ICD-10 - M48.062) - Chronic back pain related to scoliosis and stenosis, with potential L3-4-5 involvement.- Consideration for ablation in July after required steps, which include initial numbing procedures to assess effectiveness. If successful, the ablation could provide relief for up to a year or two.- Continue with Tylenol for pain management, with a recommended dose of 500 mg, up to 4000 mg per day. 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 She has atrovent to use as needed, she said she has not needed it. 06/05/2024 Anemia, unspecified (ICD-10 - D64.9) - Slightly low iron saturation at 19%.- Encourage a higher iron diet to improve iron saturation levels. 06/05/2024 Other Annual Wellness Exam- Scheduled for January 15, 2025.- Follow-up in January for the annual wellness exam. Plan Of Treatment Next Appt Details Provider Name:Meghna guy, 01/15/2025 11:00:00 AM, [address] [facility], [place], [address], [phone] Insurance Providers Payer Name Payer Address Payer Phone Subscriber Number Group Number Insured Name Patient Relationship to Insured Coverage Start Date Coverage End Date N[employer] Medicare RHC [address] [place] [address] [id number] Rosita Welch Self - patient is the insured 2 [employer] [address] [place] [address] [id number] Rosita Welch Self - patient is the insured 2 NGS Medicare B [address] [place] [address] [id number] Rosita Welch Self - patient is the insured 2 Medical (General) History Surgical History Surgery Date(Month/Year) radiation treatments ,notes : Completed on October 06, 2017 and Tamoxifen started in October of 2017 and completed on 10/01/2022. hip surgery ,notes : right hip repalceme nt JORDYN ,notes : Small PFO 07/23/21 Lumpectomy ,notes : R sided lumpectomy 0 08/03/2017 ([id number]) REPAIR BLADDER DEFECT /[id number]
--- OUTSIDE RECORDS SUMMARY | 2024-11-29 08:20 | XMS_ITS | Encounter Summary ---
Author Organization [facility] Address [address] [place] [address] Care Team Providers Care Die Maker Apprentice Name Role Phone Brain Mohan MD Primary Care Provider Reason for Visit * Reason Comments Medication Refill Encounter Details Date Type Department Care Team (Late Contact Info) Description 09/16/[address] [facility] Oncology and Hematology [facility] [address] [place] [address] Roe Borden MD [facility] [address] [place] [phone] Social History Tobacco Use Types Packs/Day [...] Department Care Team (Late Contact Info) Description 07/02/2025 10:00 AM CDT Office Visit [facility] Oncology and Hematology [address] [place] [address] Roe Borden MD [address] [facility] [address] [place] [phone] documented as of this encounter Visit Diagnoses Not on filedocumented in this encounter Care Teams Die Maker Apprentice Relationship Specialty Start Date End Date Brain Mohan MD [address] [place] [address] PCP - General Family Practice 07/20/17 documented as of this encounter
--- OUTSIDE RECORDS SUMMARY | 2024-11-29 08:20 | XMS_ITS | Encounter Summary ---
Author Organization [facility] Address [address] [place] [address] Care Team Providers Care Public Relations Intern Name Role Phone Brain Mohan MD Primary Care Provider [phone] Encounter Details Date Type Department Care Team (Late Contact Info) Description 08/24/2017 Chart Note [facility] Radiation Therapy [address] [place] [address] [place] [address] [place] [address] Social History Tobacco Use Types [...] Care Team (Late st Contact Info) Description 07/02/2025 10:00 AM CDT Office Visit [facility] Oncology and Hematology - [place] [address] [facility] [address] [place] [address] Roe Borden MD [address] [facility] [address] [place] [address] documented as of this encounter Visit Diagnoses Not on filedocumented in this encounter Care Teams Public Relations Intern Relationship Specialty Start Date End Date Brain Mohan MD [address] [place] [address] PCP - General Family Practice 07/20/17 documented as of this encounter
--- OUTSIDE RECORDS SUMMARY | 2024-11-29 08:20 | XMS_ITS | Clinical Summary ---
Author Organization [facility] Address [address] [facility] [place] [address] Phone Care Team Providers Care Watermaster Name Role Phone Brain Mohan MD Primary [...] Take 25 mg by mouth. 03/21/2020 Active naproxen sodium (ALEVE) 220 mg Capsule [...] MOUTH EVERY NIGHT AT BEDTIME 11/17/2020 Active magnesium OXIDE (MAG-OX) 400 mg (241.3 mg magnesium) tablet Take 400 mg by mouth daily. 02/05/2022 Active MAGNESIUM GLYCINATE ORAL Take by mouth daily. Active Active Problems Problem Noted Date Diagnosed Date Osteopenia 12/21/2019 DCIS (ductal carcinoma in situ) of breast 2017 Encounters Date Type Department Care Team Description 10/17/2024 External Device Data ST[facility] ABSTRACTION Provider, Abstract 10/16/2024 External Device Data [facility] ABSTRACTION Provider, Abstract 09/25/2024 External Device Data [facility] ABSTRACTION Provider, Abstract 09/18/2024 External Device Data [facility] ABSTRACTION Provider, Abstract [...] Sign Reading Time Taken Comments Blood Pressure 111/81 06/27/2024 1:39 PM CDT Pulse 88 06/27/2024 1:39 PM CDT Temperature 36.6 C (97.8 F) 06/27/2024 1:39 PM CDT Respiratory Rate 15 06/27/2024 1:39 PM CDT Oxygen Saturation 96% 06/27/2024 1:39 PM CDT Inhaled Oxygen Concentration - - Weight 70.2 kg (154 lb 12.8 oz) 06/27/2024 1:39 PM CDT Height 160 cm (5' 3) 10/01/2022 9:26 AM CDT Body Mass Index 27.42 10/01/2022 9:26 AM CDT Plan of Treatment Upcoming Encounters Date Type Department Care Team (Late st Contact Info) Description 07/02/2025 10:00 AM CDT Office Visit [facility] Oncology and Hematology - [place] [address] [place] [address] Roe Borden MD [address] [facility] [address] [place] [address] Health Maintenance Due Date Last Done Comments DTAP/TDAP/TD VACCINES (1 - Tdap) 1969 Traditional Medicare (ACO) A nnual Wellness Visit 1969 PNEUMOCOCCAL VACCINE 50+ YEA RS (2 of 2 - PCV20 or PCV21) 09/05/2016 09/06/2015 RSV VACCINE (60+ or ) (1 - 1-dose 75+ series) 2023 INFLUENZA VACCINE (#1) 2024 OSTEOPOROSIS SCREENING 01/29/2028 , 01/28/2023, 07/26/2018, Additional history exists ZOSTER VACCINE Completed 09/15/2019, 04/05, 07/09/2015 COLORECTAL SCREENING Discontinued 09/14/2022, 09/14/2022, 09/14/2022, Additional history exists Colorectal Cancer Screening Discontinued FIT-DNA Q 3 years Discontinued FIT/FOBT Q 1 year Discontinued Flex Sig/CT Colonography Q 5 years Discontinued Medical Devices Implanted Type Area Drawing In Machine Tender Device Identifier Shelf Expiration Date Model / Serial / Lot Cataract Lens Left: Eye Insurance MEDICARE PART A AND B [employer] ACCESS/TRUE Med[employer] PPO RX PRIME [employer]ER[employer] Commercial BCBS BLUE ACCESS/TRUE BLUE PPO MEDICARE PART A AND B Advance Directives For more information, please contact: [phone] * Full Code (Latest Code Status on File) Date Activated Date Inactivated Comments 08/03/2017 9:40 AM 08/03/2017 3:15 PM * Full Code Date Activated Date Inactivated Comments 08/03/2017 9:26 AM 08/03/2017 9:40 AM * Full Code Date Activated Date Inactivated Comments 08/03/2017 6:32 AM 08/03/2017 9:26 AM Care Teams Watermaster Relationship Specialty Start Date End Date Brain Mohan MD [address] [place] [address] PCP - General Family Practice 07/20/17
== END 2024-11-29 08:14 | disposition home or self-care (01) ==
LOC: ANHFOHIMG 08:16
PROVIDERS: PCP Pediatrics; Visit Provider Internal Medicine Hematology & Oncology
DX: Z12.31 Encounter for screening mammogram for malignant neoplasm of breast (principal)
CPT/HCPCS: 77063; 77067